=== PATIENT | male | born 1945 | race Caucasian/White ===

== ENCOUNTER 2016-06-20 17:50 | Emergency (ER) | payer OTHER, MEDICARE ==
[~2016-06-20] VITALS: Ht 180.3 cm; Wt 90.7 kg
[~2016-06-20 17:50] MED LIST: ASP81TEC PO; CITA40TA19 PO; DOXA1TAB2 PO; DXZS2T PO; FINA5TAB PO; FINA5TAB6 PO; IBUP-30 PO; LISI1TAB6 PO; LVF500T PO; MTR500T PO; NAPR220T76 PO; SIMV80TA3 PO; VENL75CA PO; ZOLP10TA5 PO
--- OUTSIDE RECORDS SUMMARY | 2016-06-20 17:57 | XMS REPORT | Continuity of Care Document ---
Author Author [facility] Organization [facility] Address Unknown Phone Unavailable Care Team Providers Care Coat Joiner Lockstitch Name Role Phone MARTINEZ SINHA DO PCP Insurance Providers Payer Name Policy Number Subscriber Name Relationship Wps Medicare [id number] Jean Paul Flores Jr 18 Self / Same As Patient Blue Cross [facility] Supp [id number] Yoly Flores A 01 Advance Directives Directive Response Recorded Date/Time Advance Directives No 11/10/14 6:00pm Health Care Power of Locks Tender Y yoly flores spouse [phone] 6:00pm Organ Donor No 11/10/14 6:00pm Resuscitation Status Full Code 11/10/14 6:00pm Problems Medical Problems Problem Onset Date Status Colitis Unknown Active Diarrhea Unknown Active Hematochezia Unknown Active Colitis Unknown Active Vertigo Unknown Active Nausea and vomiting Unknown Active Abdominal pain Unknown Active Medications Medication Dose Route Sig Days/Qty Instructions Order Date Discontinued Date Status Finasteride 5 Mg PO DAILY 09/11/12 01/27/14 Discontinued Citalopram Hydrobromide 40 Mg PO DAILY 09/11/12 01/27/14 Discontinued Simvastatin 80 Mg PO BEDTIME 09/11/12 11/10/14 Discontinued HCTZ/Lisinopril (Zestoretic) 1 Tab PO DAILY 09/11/12 Active Zolpidem Tartrate 10 Mg PO BEDTIME 09/11/12 Active Doxazosin Mesylate 0.5 Mg PO BEDTIME 09/11/12 01/27/14 Discontinued Aspirin 81 Mg PO DAILY 01/27/14 11/10/14 Discontinued Doxazosin Mesylate 1 Mg PO BEDTIME TAKES 1/2 (2MG) TABLET 01/27/14 Discontinued Ibuprofen 400 Mg PO DAILY PRN PAIN 01/27/14 11/10/14 Discontinued Naproxen Sodium 440 Mg PO DAILY PRN PAIN TAKES 2 (220MG) TABLETS 01/29/14 Discontinued Venlafaxine HCl 225 Mg PO BEDTIME For PTSD/DEPRESSION 01/27/14 Active Levofloxacin 500 Mg PO DAILY@11 6 Qty 01/29/14 11/10/14 Discontinued Metronidazole 500 Mg PO GIVE EVERY 8 HRS ON SCHEDULE 18 Qty 01/29/14 11/10/14 Discontinued Finasteride 5 Mg PO BEDTIME 11/10/14 Active Social History Social History Problem Response Recorded Date/Time Alcohol Use Occasionally Uses 11/10/2014 6:00pm Recreational Drug Use No 11/10/2014 6:00pm Recent Foreign Travel No 01/27/2014 4:00pm Recent Infectious Disease Exposure No 01/27/2014 4:00pm Hospitalization with Isolation Denies 01/29/2014 12:03pm Sexually Transmitted Disease No 11/10/2014 6:00pm HIV/AIDS No 11/10/2014 6:00pm Comments beer on wknds 11/10/2014 6:00pm Smoking Status Never a Smoker 11/10/2014 6:00pm Query Response Start Date Stop Date Smoking Status Never a Smoker Hospital Discharge Instructions No hospital discharge instructions. Plan of Care No plan of care. Functional Status No functional status results. Allergies, Adverse Reactions, Alerts Allergen Type Severity Reaction Status Last Updated NKANo Known Allergies Allergy Unknown Active 01/27/14 Immunizations Name Given Type Date of Pneumonia Vaccine 09/03/12 Historical Vital Signs Acute Vital Signs Vital Response Date/Time Temperature (Fahrenheit) 98.0 degrees F (97.6 - 99.5) Temperature (Calculated Celsius) 36.50850 degrees C (36.4 - 37.5) Temperature Source Temporal Pulse Rate (adult) 62 bpm (60 - 90) Respiratory Rate 20 bpm (12 - 24) O2 Sat by Pulse Oximetry 97 % (88 - 100) Blood Pressure 105/77 mm Hg Pain Pain Intensity 8 Height (Feet) 5 feet Height (Inches) 9 inches Height (Calculated Centimeters) 175.413619 cm Weight (Pounds) 235 pounds Weight (Calculated Grams) 947813.208 gm Weight (Calculated Kilograms) 106.989837 kilograms Calculated BMI 34.70 Results Laboratory Results Test Name Result Units Flags Reference Collection Date/Time Result Date/ Time Comments White Blood Count 12.1 10^3/uL H 4.3-11.0 11/10/2014 6:06pm 11/10/2014 7: 12pm Red Blood Count 4.81 10^6/uL 4.35-5.85 11/10/2014 6:06pm 11/10/2014 7: 12pm Hemoglobin 13.7 G/DL 13.3-17.7 11/10/2014 6:06pm 11/10/2014 7:12pm Hematocrit 42 % 40-54 11/10/2014 6:06pm 11/10/2014 7:12pm Mean Corpuscular Volume 88 FL 80-99 11/10/2014 6:06pm 11/10/2014 7: 12pm Mean Corpuscular Hemoglobin 29 PG 25-34 11/10/2014 6:06pm 11/10/2014 7: 12pm Mean Corpuscular Hemoglobin Concent 33 G/DL 32-36 11/10/2014 6:06pm 7:12pm Red Cell Distribution Width 13.5 % 10.0-14.5 11/10/2014 6:06pm 2014 7:12pm Platelet Count 227 10^3/uL 130-400 11/10/2014 6:06pm 11/10/2014 7:12pm Mean Platelet Volume 10.6 FL H 7.4-10.4 11/10/2014 6:06pm 11/10/2014 7: 12pm Neutrophils (%) (Auto) 59 % 42-75 11/10/2014 6:06pm 11/10/2014 7:12pm Lymphocytes (%) (Auto) 27 % 12-44 11/10/2014 6:06pm 11/10/2014 7:12pm Monocytes (%) (Auto) 12 % 0-12 11/10/2014 6:06pm 11/10/2014 7:12pm Eosinophils (%) (Auto) 2 % 0-10 11/10/2014 6:06pm 11/10/2014 7:12pm Basophils (%) (Auto) 1 % 0-10 11/10/2014 6:06pm 11/10/2014 7:12pm Neutrophils # (Auto) 7.1 X 10^3 1.8-7.8 11/10/2014 6:06pm 11/10/2014 7: 12pm Lymphocytes # (Auto) 3.2 X 10^3 1.0-4.0 11/10/2014 6:06pm 11/10/2014 7: 12pm Monocytes # (Auto) 1.4 X 10^3 H 0.0-1.0 11/10/2014 6:06pm 11/10/2014 7: 12pm Eosinophils # (Auto) 0.2 10^3/uL 0.0-0.3 11/10/2014 6:06pm 11/10/2014 7 :12pm Basophils # (Auto) 0.1 10^3/uL 0.0-0.1 11/10/2014 6:06pm 11/10/2014 7: 12pm Sodium Level 141 MMOL/L 135-145 11/10/2014 6:06pm 11/10/2014 7:21pm Potassium Level 3.3 MMOL/L L 3.6-5.0 11/10/2014 6:06pm 11/10/2014 7:21pm Chloride Level 110 MMOL/L H 98-107 11/10/2014 6:06pm 11/10/2014 7:21pm Carbon Dioxide Level 19 MMOL/L L 21-32 11/10/2014 6:06pm 11/10/2014 7: 21pm Blood Urea Nitrogen 15 MG/DL 7-18 11/10/2014 6:06pm 11/10/2014 7:21pm Creatinine 1.14 MG/DL 0.60-1.30 11/10/2014 6:06pm 11/10/2014 7:21pm BUN/Creatinine Ratio 13 11/10/2014 6:06pm 11/10/2014 7:21pm Estimat Glomerular Filtration Rate > 60 11/10/2014 6:06pm 2014 7:21pm GFR INTERPRETIVE DATA UNITS FOR ESTIMATED GFR (eGFR): mL/min/1.73 M2 REFERENCE RANGE FOR ESTIMATED GFR (eGFR) eGFR NORMAL eGFR >60 MODERATELY DECREASED eGFR 30-59 SEVERLY DECREASED eGFR 15-29 KIDNEY FAILURE <15 (OR DIALYSIS) Glucose Level 104 MG/DL 70-105 11/10/2014 6:06pm 11/10/2014 7:21pm Calcium Level 9.1 MG/DL 8.5-10.1 11/10/2014 6:06pm 11/10/2014 7:21pm Total Bilirubin 0.3 MG/DL 0.1-1.0 11/10/2014 6:06pm 11/10/2014 7:21pm Alkaline Phosphatase 76 U/L 40-136 11/10/2014 6:06pm 11/10/2014 7:21pm Aspartate Amino Transf (AST/SGOT) 26 U/L 5-34 11/10/2014 6:06pm 2014 7:21pm Alanine Aminotransferase (ALT/SGPT) 21 U/L 0-55 11/10/2014 6:06pm 11/10 7:21pm Total Protein 7.9 G/DL 6.4-8.2 11/10/2014 6:06pm 11/10/2014 7:21pm Albumin 4.1 G/DL 3.2-4.5 11/10/2014 6:06pm 11/10/2014 7:21pm Lipase 17 U/L 8-78 11/10/2014 6:06pm 11/10/2014 7:21pm Procedures No known history of procedures. Encounters Encounter Location Date/Time Departed Emergency Room Via [facility] 11/10/14 5:59pm Recent Diagnosis
[2016-06-20] MEDS ORDERED: fentaNYL INJECTION 100 MCG/2 ML AMP IVP ONE (18:30)
[2016-06-20] MEDS ORDERED: KETOROLAC 30 MG/ML VIAL IVP ONE (18:30)
[2016-06-20] MEDS ORDERED: HYDROmorphone (DILAUDID) 2 MG/ML VIAL IVP STA (18:40)
[2016-06-20] MEDS ORDERED: ORPHENADRINE 60 MG/2 ML (NORFLEX) AMP IV ONE (18:45)
--- NOTE | 2016-06-20 19:30 | Diagnostic Imaging Report ---
PROCEDURE: MRI lumbar spine. TECHNIQUE: Multiplanar, multisequence MRI of the lumbar spine was performed without contrast. INDICATION: Low back pain with right leg numbness. COMPARISON: None available. FINDINGS: There is no acute fracture or marrow replacing process in the lumbar spine. Degenerative anterolisthesis of L4 on L5 measures approximately 3 mm. No additional spondylolisthesis within the lumbar spine. No evidence of sacral insufficiency fracture. No findings of active facet synovitis. The conus terminates posterior to T12-L1 and is normal in appearance. T12-L1: Posterior disc bulge. No resultant spinal stenosis or neuroforaminal narrowing. L1-L2: Disc bulge is asymmetric to the left. Mild bilateral ligamentum flavum hypertrophy. This results in mild central spinal stenosis, mild right and mild to moderate left neuroforaminal narrowing. L2-L3: Disc bulge with mild bilateral facet hypertrophy. This results in mild central spinal stenosis. There is also mild bilateral foraminal narrowing. L3-L4: Large broad-based disc bulge with bilateral ligamentum flavum facet hypertrophy. This results in moderate to severe central spinal stenosis. There is complete effacement of the bilateral lateral recesses with marked mass effect on the transversing L4 nerve roots. There is also mild to moderate bilateral foraminal narrowing, greater on the left. L4-L5: Disc bulge with bilateral facet hypertrophy. There is resultant moderate to severe central spinal stenosis. Mild bilateral foraminal narrowing. L5-S1: Disc bulge is asymmetric to the right. There is no resultant spinal stenosis. However, there is contact of the right L5 nerve root by the disc bulge within the right foramen. IMPRESSION: 1. Multilevel degenerative changes had the greatest degree of spinal stenosis at L3-L4 and L4-L5 with moderate to severe spinal canal narrowing. 2. Asymmetric disc bulge to the right at L5-S1 contacts the right L5 nerve root within the foramen. 3. Multilevel degenerative changes are detailed level by level above. 4. No acute fracture. Dictated by: Dictated on workstation # [id number]
--- NOTE | 2016-06-20 19:52 | ED Back Pain ---
General Chief Complaint: Back Problems Stated Complaint: BACK PAIN Nursing Triage Note: Pt had to be assisted to the gurney from the floor in the waiting room. C/O low back pain with radiation down right leg. Reportedly injured himself by pulling on a dumpster chain. Nursing Sepsis Screen: No Definite Risk Source of Information: Patient Exam Limitations: No Limitations History of Present Illness Time Seen by Provider: 18:00 Initial Comments This 70-year-old gentleman presents to the emergency room with severe lower back pain with right-sided radicular symptoms of weakness, numbness, and paresthesia. Symptoms started about 2 months ago when he got compressed between 2 dumpsters. He had some significant injury at that time but managed to recover. Symptoms were severely exacerbated earlier today when he was pulling on a door with a chain. He has been ambulatory with great difficulty. He has been taking an average of one dose of NSAIDs per day over the last few months to manage his chronic pain. He denies any prior history of back problems or prior imaging. Allergies and Home Medications Allergies Coded Allergies: [place] Known Allergies (Verified Allergy, Unknown, 01/27/14) Home Medications Finasteride 5 Mg Tablet 5 MG PO HS (Reported) Hctz/Lisinopril 1 Each Tablet 1 TAB PO DAILY (Reported) Hydrocodone/Acetaminophen 1 Each Tablet #14 1-2 EACH PO Q6H PRN PRN PAIN Prescribed by: ANTOINETTE NICHOLSON on 06/20/162010 Metaxalone 800 Mg Tablet #20 800 MG PO TID PRN PRN SPASMS Prescribed by: ANTOINETTE NCIHOLSON on 06/20/162010 Prednisone 20 Mg Tab #9 20 MG PO UD 2 daily for 3 days then 1 daily for 3 days Prescribed by: ANTOINETTE NICHOLSON on 06/20/162010 Venlafaxine HCl 75 Mg Cap.er.24h 225 MG PO HS (Reported) TAKES 3 (75MG) CAPSULES Zolpidem Tartrate 10 Mg Tablet 10 MG PO HS (Reported) Constitutional: no symptoms reported EENTM: no symptoms reported Respiratory: no symptoms reported Cardiovascular: no symptoms reported Gastrointestinal: no symptoms reported Genitourinary: no symptoms reported Musculoskeletal: see HPI Skin: no symptoms reported Psychiatric/Neurological: See HPI Past Ghypzlo-Kasqsx-Puioya Hx Patient Social History Recent Foreign Travel: No Contact w/Someone Who Travel: No Recent Infectious Disease Expo: No Recent Hopitalizations: Yes Immunizations Up To Date Date of Pneumonia Vaccine: Sep 03, 2012 Surgeries HX Surgeries: Yes ( titanum plate in neck placed 2001, bilat rotator cuffs & carpal tunnels,) Surgeries: Appendectomy, Gallbladder, Orthopedic Respiratory Hx Respiratory Disorders: No Cardiovascular Hx Cardiac Disorders: Yes (HEART CATH) Cardiac Disorders: High Cholesterol, Hypertension Neurological Hx Neurological Disorders: No Reproductive System Hx Reproductive Disorders: No Sexually Transmitted Disease: No HIV/AIDS: No Genitourinary Hx Genitourinary Disorders: No Gastrointestinal Hx Gastrointestinal Disorders: Yes (colon "collapses") Gastrointestinal Disorders: Hemorrhoids Musculoskeletal Hx Musculoskeletal Disorders: No Endocrine Hx Endocrine Disorders: No HEENT HX ENT Disorders: No Loss of Vision: Denies Hearing Impairment: Denies Cancer Hx Cancer: No Psychosocial Hx Psychiatric Problems: Yes Behavioral Health Disorders: PTSD, Depression Integumentary HX Skin/Integumentary Disorder: Yes (had some places froze off on arm (sun exposure)) Skin/Integumentary Disorders: Recent Skin Changes Blood Transfusions Hx Blood Disorders: No Adverse Reaction to a Blood Tr: No Family Medical History Family Medial History: Cardiovascular disease Colon cancer Completed stroke Hypertension Neoplasm Physical Exam Vital Signs Vital Sign - Last 12Hours 06/20/16 17:55 Temp 97.6 Pulse 88 Resp 18 B/P 123/53 Pulse Ox 98 O2 Delivery Room Air Capillary Refill : Less Than 3 Seconds General Appearance: WD/WN Moderate Distress HEENT: PERRL/EOMI Normal ENT Inspection Pharynx Normal Neck: Normal Inspection Cardiovascular: Regular Rate, Rhythm No Edema No Murmur Respiratory: Lungs Clear Normal Breath Sounds No Accessory Muscle Use No Respiratory Distress Gastrointestinal: Normal Bowel Sounds Non Tender Soft Back: Vertebral Tenderness (lower lumbar spine) Other (right lumbar paraspinous tenderness and tenderness over the right SI region) Extremity: Normal Inspection No Pedal Edema Neurologic/Psychiatric: Alert Oriented x3 No Motor/Sensory Deficits Normal 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-XII Norm as Tested Skin: Normal Color Warm/Dry Progress/Results/Core Measures Results/Orders My Orders Orders-ANTOINETTE DE LA TORRE MD Ketorolac Injection (Toradol Injection) (06/20/16 18:30) Fentanyl Injection (Sublimaze Injection (06/20/16 18:30) Mri Lumbar Spine W/O Contrast (06/20/16 18:29) Orphenadrine Injection (Norflex Injectio (06/20/16 18:45) Hydromorphone Injection (Dilaudid Inject (06/20/16 18:40) Methylprednisolone Sod Succ (Solu-Medrol (06/20/16 20:00) Medications Given in ED Vital Signs/I&O Vital Sign - Last 12Hours 06/20/16 06/20/16 06/20/16 06/20/16 17:55 18:38 18:38 18:49 Temp 97.6 98.1 98.6 98.1 Pulse 88 Resp 18 B/P 123/53 Pulse Ox 98 O2 Delivery Room Air 06/20/16 20:19 Temp 97.2 Pulse 86 Resp 16 Pulse Ox 93 Blood Pressure Mean: 76 Progress Note : Progress Note Patient required successive doses of pain medications to get control of his pain. Medications included fentanyl, Toradol, Norflex, and Dilaudid. He was eventually comfortable enough to pursue MRI. MRI demonstrated multilevel severe spinal stenosis. Solu-Medrol was added to his therapy. Case was reviewed with Dr. Self who suggested outpatient treatment with Skelaxin, steroids, NSAIDs, and physical therapy daily. He suggested avoiding narcotics as much as possible. He also suggested surgery is not likely a good option for this patient given the extensive multilevel disease. Patient was able to ambulate independently after treatment of pain. A prescription was written for a walker if needed. I also contacted Dr. Sinha in an effort to expedite arrangements for physical therapy. Patient intends to file a claim with occupational health. However, he was not seen by occupational health in the ER as his employer does not contract through this facility. Diagnostic Imaging Diagonstic Imaging: MRI Plain Films/CT/US/NM/MRI: other (lumbar spine) Comments NAME: JEAN PAUL [facility] REC#: [id number] PT STATUS: REG ER : 1945 PHYSICIAN: ANTOINETTE DE LA TORRE MD ADMIT DATE: 06/20/16/ER Signed Date of Exam: 06/20/16 MRI LUMBAR SPINE W/O CONTRAST PROCEDURE: MRI lumbar spine. TECHNIQUE: Multiplanar, multisequence MRI of the lumbar spine was performed without contrast. INDICATION: Low back pain with right leg numbness. COMPARISON: None available. FINDINGS: There is no acute fracture or marrow replacing process in the lumbar spine. Degenerative anterolisthesis of L4 on L5 measures approximately 3 mm. No additional spondylolisthesis within the lumbar spine. No evidence of sacral insufficiency fracture. No findings of active facet synovitis. The conus terminates posterior to T12-L1 and is normal in appearance. T12-L1: Posterior disc bulge. No resultant spinal stenosis or neuroforaminal narrowing. L1-L2: Disc bulge is asymmetric to the left. Mild bilateral ligamentum flavum hypertrophy. This results in mild central spinal stenosis, mild right and mild to moderate left neuroforaminal narrowing. L2-L3: Disc bulge with mild bilateral facet hypertrophy. This results in mild central spinal stenosis. There is also mild bilateral foraminal narrowing. L3-L4: Large broad-based disc bulge with bilateral ligamentum flavum facet hypertrophy. This results in moderate to severe central spinal stenosis. There is complete effacement of the bilateral lateral recesses with marked mass effect on the transversing L4 nerve roots. There is also mild to moderate bilateral foraminal narrowing, greater on the left. L4-L5: Disc bulge with bilateral facet hypertrophy. There is resultant moderate to severe central spinal stenosis. Mild bilateral foraminal narrowing. L5-S1: Disc bulge is asymmetric to the right. There is no resultant spinal stenosis. However, there is contact of the right L5 nerve root by the disc bulge within the right foramen. IMPRESSION: 1. Multilevel degenerative changes had the greatest degree of spinal stenosis at L3-L4 and L4-L5 with moderate to severe spinal canal narrowing. 2. Asymmetric disc bulge to the right at L5-S1 contacts the right L5 nerve root within the foramen. 3. Multilevel degenerative changes are detailed level by level above. 4. No acute fracture. Dictated by: Dictated on workstation # [id number] Dict: 06/20/16 191 Trans: 06/20/162012 MARIA VICTORIA [id number] Interpreted by: KURT PIERRE MD Electronically signed by:KURT PIERRE MD 06/20/162014 Departure Impression Impression: Primary Impression: Spinal stenosis of lumbosacral region Additional Impression: Lower back pain Qualified Code: M54.41 - Lumbago with sciatica, right side Disposition: 01 HOME, SELF-CARE Condition: Improved Departure-Patient Inst. Decision time for Depature: 20:00 Referrals: MARTINEZ SINHA DO (PCP/Family) Primary Care Physician LASHELL BURKETT BRIAN J MD Patient Instructions: Spinal Stenosis, Radiculopathy (DC) Add. Discharge Instructions: For primary pain management, take ibuprofen up to 800 mg every 8 hours as needed. Take with food or milk to avoid irritation on your stomach. Add Tylenol 650 mg every 4 hours as needed for additional pain relief. For muscle spasms use Skelaxin as prescribed. [place] narcotics (hydrocodone) for pain that is not relieved by your other medications. Complete your steroid (prednisone) course as prescribed. You'll need to file a work comp claim independently as your employer is not contracted through the ER. If you cannot get immediate physical therapy started through your work comp claim, please contact Dr. Sinha's office to schedule physical therapy. You're being provided with a prescription for a walker if needed. Return to the emergency room if symptoms worsen. You may follow up with a clutch specialist. Information for Dr. Burkett and Dr. Henriquez has been provided. All discharge instructions reviewed with patient and/or family. Voiced understanding. Scripts Prednisone 20 Mg Tab20 Mg PO UD #9 TAB 2 daily for 3 days then 1 daily for 3 days Prov:ANTOINETTE DE LA TORRE MD 06/20/16 Metaxalone (Skelaxin)800 Mg [id number] Mg PO TID PRN SPASMS #20 TAB Prov:ANTOINETTE DE LA TORRE MD 06/20/16 Hydrocodone/Acetaminophen (Hydrocodon -Acetaminophen 5-325)1 Each Tablet1-2 Each PO Q6H PRN PAIN #14 TAB Prov:ANTOINETTE DE LA TORRE MD 06/20/16 Work/School Note: Work Release Form Date Seen in the Emergency Department: Jun 20, 2016 Other Restrictions Listed Below: Return to work when cleared by physician or occupational health Copy Copies To 1: MARTINEZ SINHA JOSHUA T MD Jun 20, 2016 19:51
[2016-06-20] MEDS ORDERED: methylPREDNISolone 125 MG (Solu-MEDROL) VIAL IVP ONE (20:00)
[2016-06-20] MEDS ORDERED: PRD20T PO (20:11)
[2016-06-20] MEDS ORDERED: HYDR-3812 PO (20:11)
[2016-06-20] MEDS ORDERED: NF-SKEL800 PO (20:11)
[2016-06-20 20:19] VITALS: BP 123/73
== END 2016-06-20 20:18 | disposition home or self-care (01) ==
LOC: EDUNIT# 17:50 → ER 17:53
DX: M51.15 Intervertebral disc disorders with radiculopathy, thoracolumbar region (principal); M47.27 Other spondylosis with radiculopathy, lumbosacral region; M48.06 Spinal stenosis, lumbar region; I10 Essential (primary) hypertension; Z79.899 Other long term (current) drug therapy
CPT/HCPCS: 72148; 96374; 96375

== ENCOUNTER 2016-06-27 12:27 | Inpatient (IN) | payer OTHER, MEDICARE ==
[~2016-06-27] VITALS: Ht 177.8 cm; Wt 109.5 kg
[~2016-06-27 12:27] MED LIST changes: +HYDR-3812 PO; +NF-SKEL800 PO; +PRD20T PO
--- OUTSIDE RECORDS SUMMARY | 2016-06-27 12:34 | XMS REPORT | Continuity of Care Document ---
Author Author [facility] Organization [facility] Address Unknown Phone Unavailable Care Team Providers Care Used Car Renovator Name Role Phone MARTINEZ SINHA DO PCP Insurance Providers Payer Name Policy Number Subscriber Name Relationship Wps Medicare [id number] Jean Paul Flores Jr 18 Self / Same As Patient Blue Cross [facility] Supp [id number] Yoly Flores A 01 Advance Directives Directive Response Recorded Date/Time Advance Directives No 11/10/14 6:00pm Health Care Power of Correction Worker Y yoly flores spouse [phone] 6:00pm Organ Donor No 11/10/14 6:00pm Resuscitation [...] F (97.6 - 99.5) Temperature (Calculated Celsius) 36.72906 degrees C (36.4 - 37.5) Temperature Source Temporal Pulse Rate (adult) 62 bpm (60 - 90) Respiratory Rate 20 bpm (12 - 24) O2 Sat by Pulse Oximetry 97 % (88 - 100) Blood Pressure 105/77 mm Hg Pain Pain Intensity 8 Height (Feet) 5 feet Height (Inches) 9 inches Height (Calculated Centimeters) 175.646704 cm Weight (Pounds) 235 pounds Weight (Calculated Grams) 189000.208 gm Weight (Calculated Kilograms) 106.767122 kilograms Calculated BMI 34.70 Results Laboratory Results [...] Encounter Location Date/Time Departed Emergency Room Via [facility] 11/10/14 5:59pm Recent Diagnosis
--- NOTE | 2016-06-27 12:38 | ED Neurological Problem ---
General Stated Complaint: CONFUSION,AGITATION Source: EMS Exam Limitations: no limitations History of Present Illness Time seen by provider: 12:35 Initial Comments To ER from home per EMS. Patient reported to his that he had a headache this morning before she went to work. She suggested he take a pain pill but doesn't believe that he did. Daughter then reports that the patient went to Dr. Te lopez in [place] to make an appointment as he was feeling generally ill but they could not get him in until 1 p.m. today. He then went home to wait and tripped over the dog as he entered the house. Daughter states that he then slid out of the chair. The was then called and Upon arrival he was agitated and confused. EMS found him to be very confused as well and gave 500 mg of ketamine IM en route to the hospital. Upon arrival to ER he is in a dissociated state with eyes open but does not follow commands. Unclear whether or not he hit his head when he fell but there is no hematoma to the face /head. Timing/Duration: 4-6 hours Severity: moderate Associated Symptoms: No nausea/vomiting Allergies and Home Medications Allergies Coded Allergies: NKANo Known Allergies (Verified Allergy, Unknown, 01/27/14) Home Medications Finasteride 5 Mg Tablet 5 MG PO HS (Reported) Hctz/Lisinopril 1 Each Tablet 1 TAB PO DAILY (Reported) Hydrocodone/Acetaminophen 1 Each Tablet #14 1-2 EACH PO Q6H PRN PRN PAIN Prescribed by: ANTOINETTE NICHOLSON on 06/20/162010 Metaxalone 800 Mg Tablet #20 800 MG PO TID PRN PRN SPASMS Prescribed by: ANTOINETTE NICHOLSON on 06/20/162010 Venlafaxine HCl 75 Mg Cap.er.24h 225 MG PO HS (Reported) TAKES 3 (75MG) CAPSULES Zolpidem Tartrate 10 Mg Tablet 10 MG PO HS (Reported) Constitutional: see HPI Eyes: No Symptoms Reported Ears, Nose, Mouth, Throat: no symptoms reported Respiratory: no symptoms reported Cardiovascular: no symptoms reported Genitourinary: no symptoms reported Musculoskeletal: no symptoms reported Skin: no symptoms reported Psychiatric/Neurological: See HPI Endocrine: No Symptoms Reported Past Ffbsvse-Jdjpjp-Kogbqu Hx Patient Social History Recent Hopitalizations: Yes Immunizations Up To Date Date of Pneumonia Vaccine: Sep 03, 2012 Surgeries HX Surgeries: Yes ( titanum plate in neck placed 2001, bilat rotator cuffs & carpal tunnels,) Surgeries: Appendectomy, Gallbladder, Orthopedic Respiratory Hx Respiratory Disorders: No Cardiovascular Hx Cardiac Disorders: Yes (HEART CATH) Cardiac Disorders: High Cholesterol, Hypertension Neurological Hx Neurological Disorders: No Reproductive System Hx Reproductive Disorders: No Sexually Transmitted Disease: No HIV/AIDS: No Genitourinary Hx Genitourinary Disorders: No Gastrointestinal Hx Gastrointestinal Disorders: Yes (colon "collapses") Gastrointestinal Disorders: Hemorrhoids Musculoskeletal Hx Musculoskeletal Disorders: No Endocrine Hx Endocrine Disorders: No HEENT HX ENT Disorders: No Loss of Vision: Denies Hearing Impairment: Denies Cancer Hx Cancer: No Psychosocial Hx Psychiatric Problems: Yes Behavioral Health Disorders: PTSD, Depression Integumentary HX Skin/Integumentary Disorder: Yes (had some places froze off on arm (sun exposure)) Skin/Integumentary Disorders: Recent Skin Changes Blood Transfusions Hx Blood Disorders: No Adverse Reaction to a Blood Tr: No Family Medical History Family Medial History: Cardiovascular disease Colon cancer Completed stroke Hypertension Neoplasm Physical Exam Vital Signs Vital Sign - Last 12Hours 06/27/16 13:42 Temp 98.1 Pulse 87 Resp 18 B/P 109/91 Pulse Ox 93 O2 Delivery Room Air Capillary Refill : General Appearance: WD/WN no apparent distress other (eyes open, pupils equal round at 3 mm, does not respond to commands.) HEENT: PERRL/EOMI normal ENT inspection Neck: non-tender full range of motion Respiratory: normal breath sounds no respiratory distress no accessory muscle use Cardiovascular: regular rate, rhythm no murmur Gastrointestinal: normal bowel sounds non tender soft Neurologic/Psychiatric: alert Crainal Nerves: normal hearing normal speech Skin: normal color warm/dry Progress/Results/Core Measures Results/Orders Lab Results Laboratory Tests Test 06/27/16 13:18 Range/Units Alanine Aminotransferase (ALT/SGPT) 36 0-55 U/L Albumin 3.7 3.2-4.5 G/DL Alkaline Phosphatase 56 40-136 U/L Anion Gap 8 5-14 MMOL/L Aspartate Amino Transf (AST/SGOT) 21 5-34 U/L BUN/Creatinine Ratio 16 Basophils # (Auto) 0.1 0.0-0.1 10^3/uL Basophils (%) (Auto) 0 0-10 % Blood Urea Nitrogen 14 7-18 MG/DL Calcium Level 8.4 L 8.5-10.1 MG/DL Carbon Dioxide Level 23 21-32 MMOL/L Chloride Level 106 98-107 MMOL/L Creatinine 0.90 0.60-1.30 MG/DL Eosinophils # (Auto) 0.1 0.0-0.3 10^3/uL Eosinophils (%) (Auto) 1 0-10 % Estimat Glomerular Filtration Rate > 60 Glucose Level 142 H 70-105 MG/DL Hematocrit 41 40-54 % Hemoglobin 13.3 13.3-17.7 G/DL INR Comment 1.1 0.8-1.4 Lymphocytes # (Auto) 2.6 1.0-4.0 X 10^3 Lymphocytes (%) (Auto) 22 12-44 % Mean Corpuscular Hemoglobin 29 25-34 PG Mean Corpuscular Hemoglobin Concent 33 32-36 G/DL Mean Corpuscular Volume 87 80-99 FL Mean Platelet Volume 9.6 7.4-10.4 FL Monocytes # (Auto) 1.1 H 0.0-1.0 X 10^3 Monocytes (%) (Auto) 10 0-12 % Neutrophils # (Auto) 8.1 H 1.8-7.8 X 10^3 Neutrophils (%) (Auto) 68 42-75 % Platelet Count 324 130-400 10^3/uL Potassium Level 3.6 3.6-5.0 MMOL/L Prothrombin Time 13.7 12.2-14.7 SEC Red Blood Count 4.66 4.35-5.85 10^6/uL Red Cell Distribution Width 13.3 10.0-14.5 % Sodium Level 137 135-145 MMOL/L Total Bilirubin 0.2 0.1-1.0 MG/DL Total Protein 6.9 6.4-8.2 G/DL White Blood Count 11.9 H 4.3-11.0 10^3/uL My Orders Orders-GARETH BRINK SKIP OPERATOR Cbc With Automated Diff (06/27/16 12:31) Comprehensive Metabolic Panel (06/27/16 12:31) Ct Head/Cervical Spine Wo (06/27/16 12:31) Protime With Inr (06/27/16 12:31) Ua Culture If Indicated (06/27/16 12:31) Chest 1 View, Ap/Pa Only (06/27/16 12:34) Pelvis (06/27/16 12:34) Midazolam Injection (Versed Injection) (06/27/16 13:00) Ondansetron Injection (Zofran Injectio (06/27/16 13:15) Ns Iv 500 Ml (Sodium Chloride 0.9%) (06/27/16 13:15) Haloperidol Injection (Haldol Injectio (06/27/16 13:45) Medications Given in ED Current Medications Medications Dose Ordered Sig/Chika Route Start Time Stop Time Status Last Admin Dose Admin Haloperidol Lactate 5 mg ONCE ONCE IM 06/27/16 13:45 06/27/16 13:46 DC 06/27/16 13:40 5 MG Midazolam HCl 1-3mg ONCE ONCE IVP 06/27/16 13:00 06/27/16 13:01 DC 06/27/16 13:31 1 MG Ondansetron HCl 4 mg ONCE ONCE IVP 06/27/16 13:15 06/27/16 13:16 DC 06/27/16 13:08 4 MG Vital Signs/I&O Vital Sign - Last 12Hours 06/27/16 13:42 Temp 98.1 Pulse 87 Resp 18 B/P 109/91 Pulse Ox 93 O2 Delivery Room Air Progress Note : Progress Note Of note, patient was started on prednisone on 06/21/16 for acute low back pain. 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 Diagnostic Imaging Diagonstic Imaging: CT Comments NAME: JEAN PAUL [facility] REC#: [id number] PT STATUS: REG ER : 1945 PHYSICIAN: GARETH BRINK APRN ADMIT DATE: 06/27/16/ER Draft Date of Exam:06/27/16 CT HEAD/CERVICAL SPINE WO PROCEDURE: CT head and CT cervical spine without contrast. TECHNIQUE: Multiple contiguous axial images were obtained through the brain and cervical spine without the use of intravenous contrast. Sagittal and coronal reformations through the cervical spine were then performed. INDICATION: Headache, confusion, and agitation. CT HEAD: Multiple contiguous axial CT images of the head were obtained. FINDINGS: Ventricles and sulci are within normal limits for size. There is no intracranial hemorrhage identified. There is no abnormal mass effect or shift of midline structures. There is mural thickening present within the left frontal sinus, multiple bilateral ethmoid air cells, and both maxillary sinuses. Calvarium is intact. IMPRESSION: Paranasal sinus mural thickening may represent chronic sinusitis. There is no CT evidence of acute sinusitis or acute intracranial abnormality. CT CERVICAL SPINE: FINDINGS: There is straightening of the normal cervical lordosis with surgical discectomy and anterior fusion at the C5-6 level. Otherwise, there is diffuse disc space narrowing and prominent marginal spurring throughout the cervical spine. Endplate spurring at C3-4 likely results in at least mild bilateral neural foraminal stenosis. There is no evidence of acute fracture or malalignment. No paraspinous hematoma is detected. IMPRESSION: Diffuse cervical spondylosis with C5-6 surgical fusion. There is no CT evidence of acute cervical spinal abnormality. Dictated on workstation # [id number] Dict: 06/27/16 1253 Trans: 06/27/16 1258 [id number] Interpreted by: YOMI PERSON MD Electronically signed by: Departure Communication Time/Spoke to Admitting Phy: 14:[address] Barrera. We will admit the patient. Hold steroids, treat with IM Haldol Progress Notes 1303-resting in bed quietly with eyes closed. Blood pressure 116/73, heart rate 72 sinus, oxygen saturation 93 percent on room air. He does open his eyes to verbal stimulation but does not respond 1329-patient is now screaming in his room nonsensical phrases moving all extremities. Versed ordered. 1333-absolutely no improvement with the Versed. He continues to scream and Wail and move all extremities. Second milligram of versed ordered and 5 mg of intramuscular Haldol. 1405-patient is now resting quietly in bed, heart rate 75, oxygen saturation 92 percent on room air, blood pressure 92/67. Impression Impression: Primary Impression: Acute psychosis Disposition: ADMITTED INPATIENT Condition: Stable Departure-Patient Inst. Referrals: MARTINEZ SINHA DO (PCP/Family) Primary Care Physician GARETH BRINK APRN Jun 27, 2016 12:38
--- NOTE | 2016-06-27 12:58 | Diagnostic Imaging Report ---
PROCEDURE: CT head and CT cervical spine without contrast. TECHNIQUE: Multiple contiguous axial images were obtained through the brain and cervical spine without the use of intravenous contrast. Sagittal and coronal reformations through the cervical spine were then performed. INDICATION: Headache, confusion, and agitation. CT HEAD: Multiple contiguous axial CT images of the head were obtained. FINDINGS: Ventricles and sulci are within normal limits for size. There is no intracranial hemorrhage identified. There is no abnormal mass effect or shift of midline structures. There is mural thickening present within the left frontal sinus, multiple bilateral ethmoid air cells, and both maxillary sinuses. Calvarium is intact. IMPRESSION: Paranasal sinus mural thickening may represent chronic sinusitis. There is no CT evidence of acute sinusitis or acute intracranial abnormality. CT CERVICAL SPINE: FINDINGS: There is straightening of the normal cervical lordosis with surgical discectomy and anterior fusion at the C5-6 level. Otherwise, there is diffuse disc space narrowing and prominent marginal spurring throughout the cervical spine. Endplate spurring at C3-4 likely results in at least mild bilateral neural foraminal stenosis. There is no evidence of acute fracture or malalignment. No paraspinous hematoma is detected. IMPRESSION: Diffuse cervical spondylosis with C5-6 surgical fusion. There is no CT evidence of acute cervical spinal abnormality. Dictated by: Dictated on workstation # [id number]
[2016-06-27] MEDS ORDERED: MIDAZOLAM 5 MG/5 ML (VERSED) VIAL IVP ONE (13:00)
--- NOTE | 2016-06-27 13:04 | Diagnostic Imaging Report ---
INDICATION: Injury from a fall. Pelvis. AP view of the pelvis shows no fracture or dislocation. IMPRESSION: Negative pelvis. Dictated by: Dictated on workstation # [id number]
--- NOTE | 2016-06-27 13:06 | Diagnostic Imaging Report ---
INDICATION: Chest pain. Portable chest at 01:07 p.m. FINDINGS: Heart size and pulmonary vascularity are normal. Lungs are clear. There are no effusions or pneumothoraces. IMPRESSION: Negative chest. Dictated by: Dictated on workstation # [id number]
[2016-06-27] MEDS ORDERED: ONDANSETRON 4 MG/2 ML (SDV) Z0FRAN IVP ONE (13:15)
[2016-06-27] MEDS ORDERED: NS IV 500 ML 500 ML IV SCH (13:15)
[2016-06-27 13:29] LABS: BASOPHILS # (AUTO) 0.1 10^3/uL (0.0-0.1); BASOPHILS % (AUTO) 0 % (0-10); EOSINOPHILS # (AUTO) 0.1 10^3/uL (0.0-0.3); EOSINOPHILS % (AUTO) 1 % (0-10); LYMPHOCYTES # (AUTO) 2.6 X 10^3 (1.0-4.0); LYMPHOCYTES % (AUTO) 22 % (12-44); MEAN CORPUSCULAR HEMOGLOBIN 29 PG (25-34); MEAN CORPUSCULAR HGB CONC 33 G/DL (32-36); MEAN CORPUSCULAR VOLUME 87 FL (80-99); MEAN PLATELET VOLUME 9.6 FL (7.4-10.4); MONOCYTES # (AUTO) 1.1 X 10^3 (0.0-1.0); MONOCYTES % (AUTO) 10 % (0-12); NEUTROPHILS # (AUTO) 8.1 X 10^3 (1.8-7.8); NEUTROPHILS % (AUTO) 68 % (42-75); PLATELET COUNT 324 10^3/uL (130-400); RED BLOOD COUNT 4.66 10^6/uL (4.35-5.85); RED CELL DISTRIBUTION WIDTH 13.3 % (10.0-14.5); WHITE BLOOD COUNT 11.9 10^3/uL (4.3-11.0)
[2016-06-27 13:45] LABS: INR 1.1 (0.8-1.4); PROTHROMBIN TIME PATIENT 13.7 SEC (12.2-14.7)
[2016-06-27] MEDS ORDERED: HALOPERIDOL 5 MG/ML (HALDOL) AMP IM ONE (13:45)
[2016-06-27 13:49] LABS: ALANINE AMINOTRANSFERASE 36 U/L (0-55); ALBUMIN 3.7 G/DL (3.2-4.5); ANION GAP 8 MMOL/L (5-14); ASPARTATE AMINO TRANSFERASE 21 U/L (5-34); BILIRUBIN,TOTAL 0.2 MG/DL (0.1-1.0); BLOOD UREA NITROGEN 14 MG/DL (7-18); BUN/CREATININE RATIO 16; CALCIUM 8.4 MG/DL (8.5-10.1); CARBON DIOXIDE 23 MMOL/L (21-32); CHLORIDE 106 MMOL/L (98-107); GFR ESTIMATED > 60; GLUCOSE 142 MG/DL (70-105); POTASSIUM 3.6 MMOL/L (3.6-5.0); SODIUM 137 MMOL/L (135-145); TOTAL PROTEIN 6.9 G/DL (6.4-8.2)
[2016-06-27] MEDS ORDERED: HALOPERIDOL 5 MG/ML (HALDOL) AMP IM PRN (14:45)
[2016-06-27 15:35] VITALS: BP 150/78
[2016-06-27] MEDS ORDERED: HYDR-3812 PO (15:41)
[2016-06-27] MEDS ORDERED: META800T PO (15:41)
[2016-06-27] MEDS ORDERED: DOXA2TAB2 PO (15:50)
[2016-06-27] MEDS ORDERED: SIMV80TA3 PO (15:50)
[2016-06-27] MEDS ORDERED: MELA1TAB10 PO (15:50)
[2016-06-27] MEDS ORDERED: ACETAMINOPHEN 500 MG TAB (TYLENOL) PO PRN (18:00)
[2016-06-27] MEDS ORDERED: CATHETER FLUSH 10 ML SYR IV PRN (18:00)
[2016-06-27] MEDS: ONDANSETRON 4 MG/2 ML (SDV) Z0FRAN IVP PRN ×2 (18:04→22:21)
[2016-06-27 19:08] LABS: BILIRUBIN,URINE NEGATIVE (NEGATIVE); KETONES,URINE NEGATIVE (NEGATIVE); LEUKOCYTE ESTERASE ,URINE NEGATIVE (NEGATIVE); NITRITE,URINE NEGATIVE (NEGATIVE); PH,URINE 7 (5-9); PROTEIN,URINE NEGATIVE (NEGATIVE); UROBILINOGEN,URINE NORMAL (NORMAL)
[2016-06-27 19:38] LABS: WBC,URINE RARE /HPF
[2016-06-27 20:10] VITALS: BP 182/82
[2016-06-27] MEDS ORDERED: ZOLPIDEM 5 MG (AMBIEN) TAB ONE (22:03)
[2016-06-27] MEDS ORDERED: VENlafaxine XR 75 MG (EFFEXOR XR) CAP PO ONE (22:06)
[2016-06-27] MEDS: ZOLPIDEM 5 MG (AMBIEN) TAB PO SCH (22:10)
[2016-06-27] MEDS: CATHETER FLUSH 10 ML SYR IV SCH (22:11)
[2016-06-28 00:05] VITALS: BP 130/76
[2016-06-28] MEDS ORDERED: ZOLPIDEM 5 MG (AMBIEN) TAB ONE (01:07)
[2016-06-28] MEDS: ZOLPIDEM 5 MG (AMBIEN) TAB PO SCH (01:16)
[2016-06-28 04:00] VITALS: BP 115/65
[2016-06-28] MEDS: CATHETER FLUSH 10 ML SYR IV SCH (06:00)
[2016-06-28 08:00] VITALS: BP 151/78
--- NOTE | 2016-06-28 10:53 | Short Stay Summary-Hospitalist ---
HPI History of Present Illness: HPI/Chief Complaint CC: Severe Confusion HPI: This is a 70[address] pt [place] [address] [facility] [place] with severe delirium and psychosis. He was recently placed on Prednisone for ruptured discs in back and the theory is that this could have started this issue. 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 Pt has been ambulating and is very clear of mind. RN states that pt is stable for DC. Pt has been eating without compilations. Patient Interview: Pt states that he feels very good today and is ready for DC. Pt states that he has only seen Dr. Tiwari once before. Pt normally goes to [facility]. Pt has two ruptured discs in back, and was placed on Prednisone. Pt does not smoke or drink ETOH. Pt was on Prednisone starting last Monday and began to feel ill Monday. Pt felt strange and had HAs while taking Prednisone. Physical exam stable. Scribed by Daniel Owusu under the direct supervision of Dr. Barrera. Source: patient Exam Limitations: no limitations Date Seen 06/28/16 Attending Physician Penny Barrera DO PCP Aleisha Tiwari MD Referring Physician Date of Admission Jun 27, 2016 at 14:04 Home Medications & Allergies Home Medications Reviewed patient Home Medication Reconciliation Form Allergies Uncoded Allergies: PREDINSONE (Adverse Reaction, Severe, 06/28/16) PREDNISONE INDUCED PSYCHOSIS Past Zqhwydc-Ikvbhl-Rdlzgt Hx Patient Social History Marrital Status: Employed/Student: retired Alcohol Use: Occasionally Uses Recreational Drug Use: No Smoking Status: Never a Smoker Physical Abuse Screen: No Sexual Abuse: No Recent Foreign Travel: No Contact w/other who traveled: No Recent Hopitalizations: Yes Recent Infectious Disease Expo: No Immunizations Up To Date Date of Pneumonia Vaccine: Sep 03, 2012 Date of Influenza Vaccine: Jan 25, 2017 Surgeries HX Surgeries: Yes ( titanum plate in neck placed 2001, bilat rotator cuffs & carpal tunnels,) Surgeries: Appendectomy, Gallbladder, Orthopedic Respiratory Hx Respiratory Disorders: No Cardiovascular Hx Cardiovascular Disorders: Yes (HEART CATH) Cardiac Disorders: High Cholesterol, Hypertension Neurological Hx Neurological Disorders: No Reproductive System Hx Reproductive Disorders: No Sexually Transmitted Disease: No HIV/AIDS: No Genitourinary Hx Genitourinary Disorders: No Gastrointestinal Hx Gastrointestinal Disorders: Yes (colon "collapses") Gastrointestinal Disorders: Hemorrhoids Musculoskeletal Hx Musculoskeletal Disorders: Yes Musculoskeletal Disorders: Degenerate Disk Disease Endocrine Hx Endocrine Disorders: No HEENT HX ENT Disorders: No Loss of Vision: Denies Hearing Impairment: Denies Cancer Hx Cancer: No Psychosocial Hx Psychiatric Problems: Yes Behavioral Health Disorders: PTSD, Depression Integumentary HX Skin/Integumentary Disorder: Yes (had some places froze off on arm (sun exposure)) Skin/Integumentary Disorders: Recent Skin Changes Blood Transfusions Hx Blood Disorders: No Adverse Reaction to a Blood Tr: No Family Medical History Family Hx: Cardiovascular disease Colon cancer Completed stroke Hypertension Neoplasm Review of Systems Constitutional: see HPI malaise weakness EENTM: no symptoms reported Respiratory: no symptoms reported Cardiovascular: no symptoms reported Gastrointestinal: no symptoms reported Genitourinary: no symptoms reported Musculoskeletal: back pain Skin: no symptoms reported Psychiatric/Neurological: Other (amnesia of psychotic event) Physical Exam Physical Exam Vital Signs Vital Sign - Last 12Hours 06/27/16 13:42 Temp 98.1 Pulse 87 Resp 18 B/P 109/91 Pulse Ox 93 O2 Delivery Room Air Capillary Refill : NONELess Than 3 Seconds General Appearance: No Apparent Distress WD/WN Eyes: Bilateral Eye Normal Inspection, Bilateral Eye PERRL HEENT: PERRL/EOMI Normal ENT Inspection Pharynx Normal Neck: Full Range of Motion Normal Inspection Non Tender Supple Carotid Bruit Respiratory: Chest Non Tender Lungs Clear Normal Breath Sounds No Accessory Muscle Use No Respiratory Distress Cardiovascular: Regular Rate, Rhythm No Edema No Gallop No JVD No Murmur Normal Peripheral Pulses Gastrointestinal: Normal Bowel Sounds No Organomegaly No Pulsatile Mass Non Tender Soft Back: Normal Inspection No CVA Tenderness No Vertebral Tenderness Extremity: Normal Capillary Refill Normal Inspection Normal Range of Motion Non Tender No Calf Tenderness No Pedal Edema Neurologic/Psychiatric: Alert Oriented x3 No Motor/Sensory Deficits Normal Mood/Affect Skin: Normal Color Warm/Dry Lymphatic: No Adenopathy Results Results/Procedures Lab Laboratory Tests 06/27/16 13:18 Short Stay Diagnosis Discharge Diagnosis-Short Stay Admission Diagnosis Assessment: Steroid induced psychosis HTN Chronic back pain Final Discharge Diagnosis Assessment: Steroid induced psychosis HTN Chronic back pain Conclusion Plan Plan: DC and follow-up with Dr. Tiwari List prednisone as an allergy due to the severity of psychosis Clinical Quality Measures DVT/VTE Risk/Contraindication: Risk Factor Score Per Nursin RFS Level Per Nursing on Admit: 4+=Very High PENNY BARRERA DO Jun 28, 2016 10:53
[2016-06-28] MEDS ORDERED: HYDROcodone/APAP 5 MG/325 MG (LORTAB) TAB PO PRN (11:00)
--- NOTE | 2016-06-28 11:00 | Discharge Instructions ---
Discharge Instructions Discharge Medications New, Converted or Re-Newed RX: Other Continued Medications: Doxazosin Mesylate (Doxazosin Mesylate) 2 Mg Tablet 2 MG PO DAILY TAB Finasteride (Finasteride) 5 Mg Tablet 5 MG PO HS TAB Hctz/Lisinopril (Lisinopril-Hctz 10-12.5 Mg Tab) 1 Each Tablet 1 TAB PO DAILY TAB Hydrocodone/Acetaminophen (Hydrocodon -Acetaminophen 5-325) 1 Each Tablet 1-2 TAB PO Q6H PRN PAIN TAB Melatonin/Pyridoxine (Melatonin 3 mg Tablet) 1 Each Tablet 6 MG PO HS PRN SLEEP TAB Metaxalone (Metaxalone) 800 Mg Tablet 800 MG PO TID PRN MUSCLE SPASMS TAB Simvastatin (Simvastatin) 80 Mg Tablet 80 MG PO HS TAB Venlafaxine HCl (Effexor Xr) 75 Mg Cap.er.24h 225 MG PO HS TAKES 3 (75MG) CAPSULES PTSD/DEPRESSION CAP Zolpidem Tartrate (Zolpidem Tartrate) 10 Mg Tablet 10 MG PO HS TAB Patient Instructions Goal/Follow Up Appt: Dr Tiwari in 1 week Patient Instructions: Stop taking prednisone now and the future Activity & Diet Discharge Diet: No Restrictions Activity as Tolerated: Yes WILFRED MANZANARES DO Jun 28, 2016 11:00
[2016-06-28] MEDS ORDERED: VENlafaxine XR 75 MG (EFFEXOR XR) CAP PO SCH (21:00)
[2016-06-28] MEDS ORDERED: ZOLPIDEM 5 MG (AMBIEN) TAB PO SCH (21:00)
[2016-06-28] MEDS ORDERED: MELATONIN 3 MG TABLET PO PRN (21:00)
[2016-06-28] MEDS ORDERED: FINASTERIDE (PROSCAR) 5 MG TAB PO SCH (21:00)
[2016-06-28] MEDS ORDERED: SIMvastatin 40 MG (ZOCOR) TAB PO SCH (21:00)
[2016-06-29] MEDS ORDERED: HYDROCHLOROTHIAZIDE 12.5 MG (HCTZ) CAP PO SCH (09:00)
[2016-06-29] MEDS ORDERED: lisINopril 10 MG (PRINIVIL) TAB PO SCH (09:00)
[2016-06-29] MEDS ORDERED: doxAzosin 2 MG (CARDURA) TAB PO SCH (09:00)
== END 2016-06-28 12:15 | disposition home or self-care (01) | DRG 885 ==
LOC: EDUNIT# 12:27 → ER 12:29 → 4TH 14:04
PROVIDERS: ADMIT Internal Medicine; ATTEND Internal Medicine
DX: F23 Brief psychotic disorder (principal); T38.0X5A Adverse effect of glucocorticoids and synthetic analogues, initial encounter; E78.00 Pure hypercholesterolemia, unspecified; I10 Essential (primary) hypertension; F32.9 Major depressive disorder, single episode, unspecified; F43.10 Post-traumatic stress disorder, unspecified; M54.9 Dorsalgia, unspecified; G89.29 Other chronic pain
CPT/HCPCS: 36415; 70450; 71010; 72125; 72170; 80053; 81000; 85025; 85610; 96361; 96372; 96374

== ENCOUNTER 2018-07-23 16:40 | Emergency (ER) | payer OTHER, MEDICARE ==
[~2018-07-23] VITALS: Ht 180.3 cm; Wt 127.0 kg
[~2018-07-23 16:40] MED LIST changes: +ACHD5005 PO; +DOXA2TAB2 PO; -HYDR-3812 PO; +MELA1TAB10 PO; +META800T PO; +SIMV80TA21 PO
--- OUTSIDE RECORDS SUMMARY | 2018-07-23 16:48 | XMS REPORT | Continuity of Care Document ---
Author Author [facility] Organization [facility] Address Unknown Phone Unavailable Allergies Active Description Code Type Severity Reaction Onset Reported/Identified Relationship to Patient Clinical Status Yes NO KNOWN DRUG ALLERGIES NO KNOWN DRUG ALLERG UNKNOWN Yes PREDNISONE SEVERE OTHER Yes NKANo Known Allergies NKA Miscellaneous Allergy Unknown N/A 01/27/2014 Yes PREDINSONE PREDINSONE Severe N/A 06/28/2016 Medications Medication Packaging Start Date Stop Date Route Dosage Sig NORMAL SALINE 1000CC IV BAG INJ 0.9 % (NS 1000CC IV BAG) ml 03/15/2018 03/30/2018 CONTINUOUSEVERY 0 Hour MIDAZOLAM 2CC VIAL INJ 1 MG/CC (VERSED 2CC VIAL) MG 03/15/2018 03/15/2018 ONCE&1030 CEFAZOLIN VIAL INJ 1 GM (ANCEF) GM 03/15/2018 03/15/2018 ONCE&1100 FENTANYL INJ 100 MCG/2CC VIAL MCG 03/15/2018 03/15/2018 ONCE&1207 Problems Date Dx Coded Attending Type Code Diagnosis Diagnosed By 09/11/2012 Ot 272.4 HYPERLIPIDEMIA NEC/NOS 09/11/2012 Ot 401.9 HYPERTENSION NOS 09/11/2012 Ot 600.00 HYPERTROPHY (BENIGN) OF PROSTATE W/O URI 09/11/2012 Ot 729.5 PAIN IN LIMB 09/11/2012 Ot 786.59 CHEST PAIN NEC 09/11/2012 Ot 794.31 ABNORM ELECTROCARDIOGRAM 09/11/2012 Ot V17.49 FAMILY HISTORY OF OTHER CARDIOVASCULAR D 09/11/2012 Ot V58.69 OTH MED,LT, CURRENT USE 01/29/2014 MARTINEZ SINHA DO Ot 272.4 HYPERLIPIDEMIA NEC/NOS 01/29/2014 MARTINEZ SINHA DO Ot 276.51 DEHYDRATION 01/29/2014 MARTINEZ SINHA DO Ot 311 DEPRESSIVE DISORDER NEC 01/29/2014 MARTINEZ SINHA DO Ot 401.9 HYPERTENSION NOS 01/29/2014 MARTINEZ SINHA DO Ot 558.9 NONINF GASTROENTERIT NEC 11/10/2014 SHONA CABRERA [employer] Ot 443.9 11/10/2014 MARTINEZ SINHA DO Ot 786.50 11/10/2014 ANNA HEATH MD Ot 780.4 DIZZINESS AND GIDDINESS 11/10/2014 IVANA TSE, ANNA Garcia Ot 787.01 NAUSEA WITH VOMITING 11/10/2014 ANNA HEATH MD Ot 789.00 ABDOMINAL PAIN, UNSPECIFIED SITE 11/13/2014 SHONA CABRERA [employer] Ot 443.9 11/13/2014 MARTINEZ SINHA DO Ot 786.50 09/18/2015 SHONA CABRERA [employer] Ot 443.9 PERIPH VASCULAR DIS NOS 09/18/2015 MARTINEZ SINHA DO Ot 786.50 CHEST PAIN NOS 01/11/2016 A 782.1 RASH AND OTHER NONSPECIFIC SKIN ERUPTION 01/11/2016 A R21 RASH AND OTHER NONSPECIFIC SKIN ERUPTION 06/20/2016 SHONA CABRERA [employer] Ot 443.9 PERIPH VASCULAR DIS NOS 06/20/2016 MARTINEZ SINHA DO Ot 786.50 CHEST PAIN NOS 06/20/2016 SHONA CABRERA [employer] Ot 443.9 PERIPH VASCULAR DIS NOS 06/20/2016 MARTINEZ SINHA DO Ot 786.50 CHEST PAIN NOS 06/20/2016 BRITT TSE, ANTOINETTE Saba Ot I10 ESSENTIAL (PRIMARY) HYPERTENSION 06/20/2016 BRITT TSE, ANTOINETTE Saba Ot 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, IRENE 06/20/2016 BRITT TSE, ANTOINETTE Saba Ot M48.06 SPINAL STENOSIS, LUMBAR REGION 06/20/2016 BRITT TSE, ANTOINETTE Saba Ot 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, T 06/20/2016 BRITT TSE, ANTOINETTE Saba Ot M54.5 LOW BACK PAIN 06/20/2016 BRITT TSE, ANTOINETTE Saba Ot Z79.899 OTHER ALF (CURRENT) DRUG THERAPY 06/20/2016 SHONA CABRERA [employer] Ot 443.9 PERIPH VASCULAR DIS NOS 06/20/2016 MARTINEZ SINHA DO Ot 786.50 CHEST PAIN NOS 06/20/2016 SHONA CABRERA [employer] Ot 443.9 PERIPH VASCULAR DIS NOS 06/20/2016 MARTINEZ SINHA DO Ot 786.50 CHEST PAIN NOS 06/21/2016 SHONA CABRERA [employer] Ot 443.9 PERIPH VASCULAR DIS NOS 06/21/2016 MARTINEZ SINHA DO Ot 786.50 CHEST PAIN NOS 06/28/2016 BRITT TSE, ANTOINETTE Saba Ot I10 ESSENTIAL (PRIMARY) HYPERTENSION 06/28/2016 BRITT TSE, ANTOINETTE Saba Ot 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, IRENE 06/28/2016 BRITT TSE, ANTOINETTE Saba Ot M48.06 SPINAL STENOSIS, LUMBAR REGION 06/28/2016 BRITT TSE, ANTOINETTE Saba Ot 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, T 06/28/2016 BRITT TSE, ANTOINETTE Saba Ot M54.5 LOW BACK PAIN 06/28/2016 BRITT TSE, ANTOINETTE Saba Ot Z79.899 OTHER DISK RECOATER (CURRENT) DRUG THERAPY 06/28/2016 GLENNA BRUNNER WILFRED Ot E78.00 PURE HYPERCHOLESTEROLEMIA, UNSPECIFIED 06/28/2016 GLENNA BRUNNER WILFRED Ot F19.959 OTH PSYCHOACTV SUBSTANCE USE, UNSP W PSY 06/28/2016 GLENNA BRUNNER WILFRED Ot F23 BRIEF PSYCHOTIC DISORDER 06/28/2016 GLENNA BRUNNER WILFRED Ot F32.9 MAJOR DEPRESSIVE DISORDER, SINGLE EPISOD 06/28/2016 GLENNA BRUNNER WILFRED Ot F43.10 POST-TRAUMATIC STRESS DISORDER, UNSPECIF 06/28/2016 GLENNA BRUNNER WILFRED Ot G89.29 OTHER CHRONIC PAIN 06/28/2016 GLENNA BRUNNER WILFRED Ot I10 ESSENTIAL (PRIMARY) HYPERTENSION 06/28/2016 GLENNA RBUNNER WILFRED Ot M54.9 DORSALGIA, UNSPECIFIED 06/28/2016 GLENNA BRUNNER WILFRED Ot T38.0X5A ADVERSE EFFECT OF GLUCOCORT/SYNTH ANALOG 07/01/2016 SHONA CABRERA [employer] Ot 443.9 PERIPH VASCULAR DIS NOS 07/01/2016 MARTINEZ SINHA DO Ot 786.50 CHEST PAIN NOS 07/01/2016 FRANCISCO CABRERAHER L [employer] Ot 443.9 PERIPH VASCULAR DIS NOS 07/01/2016 GELLENDER DO, MARTINEZ A Ot 786.50 CHEST PAIN NOS 07/04/2016 BAIMA, SHONA L [employer] Ot 443.9 PERIPH VASCULAR DIS NOS 07/04/2016 GELLENDER DO, MARTINEZ A Ot 786.50 CHEST PAIN NOS 07/05/2016 BAIMA, SHONA L [employer] Ot 443.9 PERIPH VASCULAR DIS NOS 07/05/2016 GELLENDER DO, MARTINEZ A Ot 786.50 CHEST PAIN NOS 07/14/2016 BAIMA, SHONA L [employer] Ot 443.9 PERIPH VASCULAR DIS NOS 07/14/2016 GELLENDER DO, MARTINEZ A Ot 786.50 CHEST PAIN NOS 07/14/2016 BAIMA, SHONA L [employer] Ot 443.9 PERIPH VASCULAR DIS NOS 07/14/2016 GELLENDER DO, MARTINEZ A Ot 786.50 CHEST PAIN NOS 08/04/2016 BAIMA SHONA L [employer] Ot 443.9 PERIPH VASCULAR DIS NOS 08/04/2016 GELLENDER DO, MARTINEZ A Ot 786.50 CHEST PAIN NOS 08/04/2016 BAIMA, SHONA L [employer] Ot 443.9 PERIPH VASCULAR DIS NOS 08/04/2016 GELLENDER DO, MARTINEZ A Ot 786.50 CHEST PAIN NOS 08/14/2016 BAIMA, SHONA L [employer] Ot 443.9 PERIPH VASCULAR DIS NOS 03/15/2018 FRANCINE HINDS 727.05 OTHER TENOSYNOVITIS OR HAND AND WRIST 03/15/2018 FRANCINE HINDS 836.0 TEAR OF MEDIAL CARTILAGE OR MENISCUS OF KNEE, CURRENT 03/15/2018 FRANCINE HINDS 836.1 TEAR OF LATERAL CARTILAGE OR MENISCUS OF KNEE, CURRENT 03/15/2018 FRANCINE HINDS M65.9 SYNOVITIS AND TENOSYNOVITIS, UNSPECIFIED 03/15/2018 FRANCINE HINDS S83.241A OTH TEAR OF MEDIAL MENISCUS, CURRENT INJURY, R KNEE, INIT 03/15/2018 FRANCINE HINDS S83.281A OTH TEAR OF LAT MENSC, CURRENT INJURY, RIGHT KNEE, INIT 03/19/2018 W V54.89 OTHER ORTHOPEDIC AFTERCARE 03/19/2018 W Z47.89 ENCOUNTER FOR OTHER ORTHOPEDIC AFTERCARE 04/16/2018 W V54.89 OTHER ORTHOPEDIC AFTERCARE 04/16/2018 W Z47.89 ENCOUNTER FOR OTHER ORTHOPEDIC AFTERCARE Procedures There is no data. Results Test Result Range Lipid Panel - 06/22/16 15:15 C/HDL 4.3 3.7-6.7 Cholesterol 175 mg/dL 100-240 HDL 41 mg/dL 30-85 LDL-Calculated 91 mg/dL 0-100 Trig 216 mg/dL 35-160 VLDL 43 mg/dL 0-42 Complete blood count (CBC) with automated white blood cell (WBC) differential - 06/27/16 13:18 Blood leukocytes automated count (number/volume) 11.9 10*3/uL 4.3-11.0 Blood erythrocytes automated count (number/volume) 4.66 10*6/uL 4.35-5.85 Venous blood hemoglobin measurement (mass/volume) 13.3 g/dL 13.3-17.7 Blood hematocrit (volume fraction) 41 % 40-54 Automated erythrocyte mean corpuscular volume 87 [foz_us] 80-99 Automated erythrocyte mean corpuscular hemoglobin (mass per erythrocyte) 29 pg 25-34 Automated erythrocyte mean corpuscular hemoglobin concentration measurement ( mass/volume) 33 g/dL 32-36 Automated erythrocyte distribution width ratio 13.3 % 10.0-14.5 Automated blood platelet count (count/volume) 324 10*3/uL 130-400 Automated blood platelet mean volume measurement 9.6 [foz_us] 7.4-10.4 Automated blood neutrophils/100 leukocytes 68 % 42-75 Automated blood lymphocytes/100 leukocytes 22 % 12-44 Blood monocytes/100 leukocytes 10 % 0-12 Automated blood eosinophils/100 leukocytes 1 % 0-10 Automated blood basophils/100 leukocytes 0 % 0-10 Blood neutrophils automated count (number/volume) 8.1 10*3 1.8-7.8 Blood lymphocytes automated count (number/volume) 2.6 10*3 1.0-4.0 Blood monocytes automated count (number/volume) 1.1 10*3 0.0-1.0 Automated eosinophil count 0.1 10*3/uL 0.0-0.3 Automated blood basophil count (count/volume) 0.1 10*3/uL 0.0-0.1 PT panel in platelet poor plasma by coagulation assay - 06/27/16 13:18 Prothrombin time (PT) in platelet poor plasma by coagulation assay 13.7 s 12.2-14.7 INR in platelet poor plasma or blood by coagulation assay 1.1 0.8-1.4 Comprehensive metabolic panel - 06/27/16 13:18 Serum or plasma sodium measurement (moles/volume) 137 mmol/L 135-145 Serum or plasma potassium measurement (moles/volume) 3.6 mmol/L 3.6-5.0 Serum or plasma chloride measurement (moles/volume) 106 mmol/L 98-107 Carbon dioxide 23 mmol/L 21-32 Serum or plasma anion gap determination (moles/volume) 8 mmol/L 5-14 Serum or plasma urea nitrogen measurement (mass/volume) 14 mg/dL 7-18 Serum or plasma creatinine measurement (mass/volume) 0.90 mg/dL 0.60-1.30 Serum or plasma urea nitrogen/creatinine mass ratio 16 NRG Serum or plasma creatinine measurement with calculation of estimated glomerular filtration rate > NRG Serum or plasma glucose measurement (mass/volume) 142 mg/dL 70-105 Serum or plasma calcium measurement (mass/volume) 8.4 mg/dL 8.5-10.1 Serum or plasma total bilirubin measurement (mass/volume) 0.2 mg/dL 0.1-1.0 Serum or plasma alkaline phosphatase measurement (enzymatic activity/volume) 56 U/L 40-136 Serum or plasma aspartate aminotransferase measurement (enzymatic activity/ volume) 21 U/L 5-34 Serum or plasma alanine aminotransferase measurement (enzymatic activity/volume ) 36 U/L 0-55 Serum or plasma protein measurement (mass/volume) 6.9 g/dL 6.4-8.2 Serum or plasma albumin measurement (mass/volume) 3.7 g/dL 3.2-4.5 Complete urinalysis with reflex to culture - 06/27/16 18:55 Urine color determination YELLOW NRG Urine clarity determination CLEAR NRG Urine pH measurement by test strip 7 5-9 Specific gravity of urine by test strip 1.010 1.016- 1.022 Urine protein assay by test strip, semi-quantitative NEGATIVE NEGATIVE Urine glucose detection by automated test strip NEGATIVE NEGATIVE Erythrocytes detection in urine sediment by light microscopy NEGATIVE NEGATIVE Urine ketones detection by automated test strip NEGATIVE NEGATIVE Urine nitrite detection by test strip NEGATIVE NEGATIVE Urine total bilirubin detection by test strip NEGATIVE NEGATIVE Urine urobilinogen measurement by automated test strip (mass/volume) NORMAL NORMAL Urine leukocyte esterase detection by dipstick NEGATIVE NEGATIVE Automated urine sediment erythrocyte count by microscopy (number/high power field) NONE NRG Automated urine sediment leukocyte count by microscopy (number/high power field ) RARE NRG Bacteria detection in urine sediment by light microscopy NEGATIVE NRG Crystals detection in urine sediment by light microscopy NONE NRG Casts detection in urine sediment by light microscopy NONE NRG Mucus detection in urine sediment by light microscopy SMALL NRG Complete urinalysis with reflex to culture NO NRG Urinalysis - 03/08/18 13:21 Icotest N/A Negative Urine Volume Urine Volume Sufficient (10mL) Urine-Appearance Clear Clear Urine-Bacteria Trace Urine-Bilirubin Negative Negative Urine-Blood Negative Negative Urine-Color Yellow Colorless-Lt. Yellow Urine-Epithelial Cells 0-5/HPF Urine-Glucose Negative Negative Urine-Ketones Negative Negative Urine-Leukocytes Negative Negative Urine-Nitrite Negative Negative Urine-pH 5.5 5-8.5 Urine-Protein Negative Negative Urine-RBC Negative Urine-Specific [place] 1.025 1.000-1.030 Urine-WBC Negative Urobilinogen 0.2 E.U./dL 0.2-1.0 Comprehensive Metabolic Panel - 03/08/18 13:21 Albumin 4.3 g/dL 3.6-5.1 ALP 70 U/L 35-130 ALT 22 U/L 6-45 Anion Gap 14 6-14 AST 21 U/L 2-40 BUN 18 mg/dL 5-25 Calcium 9.1 mg/dL 8.3-10.4 Chloride 106 mmol/L 95-114 CO2 24 mEq/L 22-33 Creat 1.21 mg/dL 0.50-1.50 eGFR 59 mL/min/1.73m2 >59 Globulin 3.7 g/dL 2.3-3.5 Glucose 96 mg/dL 70-110 Osmo 291 280-295 Potassium 4.4 mmol/L 3.5-5.3 Sodium 140 mmol/L 134-148 TBil 0.3 mg/dL 0.2-1.2 TP 8.0 g/dL 6.0-8.3 Nasal Culture - 03/08/18 13:21 FINAL CULTURE RESULTS MRSA Negative Nasal Culture MEDIA PLATED Setup at 13:32 on 03/08/2018 Encounters ACCT No. Visit Date/Time Discharge Status Pt. 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 (?) [id number] 06/20/2016 17:53:00 06/20/2016 20:18:00 DIS Emergency BRITT TSE, ANTOINETTE Saba [facility] ER BACK PAIN [id number] 11/10/2014 17:59:00 11/10/2014 22:27:00 DIS Emergency IVANA TSE, ANNA Garcia [facility] ER SOA;DIZZINESS; VOMITING [id number] 01/28/2014 11:00:00 01/29/2014 11:40:00 DIS Inpatient MARCELLSOBORNE MARTINEZ Mackenzie [facility] 4TH COLITIS, HEMATOCHEZIA , DIARRHEA [id number] 11/28/2012 12:47:00 11/28/2012 23:59:59 CLS Outpatient ERNESTINE MARTINEZ BRUNNER [facility] RAD PAIN IN RT RIB [id number] 10/31/2012 14:37:00 10/31/2012 23:59:59 CLS Outpatient SHONA CABRERA [facility] RAD CLAUDICATION [id number] 09/11/2012 11:01:00 Document Registration [id number] 03/15/2018 07:34:00 03/15/2018 12:53:00 DIS Outpatient FRANCINE HINDS [id number] 03/08/2018 13:22:00 03/08/2018 23:59:00 DIS Outpatient FRANCINE HINDS [id number] 06/29/2016 14:56:00 06/29/2016 23:59:00 DIS Outpatient OMKAR ANGELES [id number] 06/23/2016 07:38:00 06/23/2016 23:59:00 DIS Outpatient OMKAR ANGELES [id number] 03/19/2018 10:36:00 Document Registration [id number] 03/14/2018 13:50:47 Document Registration [id number] 01/11/2016 14:56:00 Document Registration [id number] 11/10/2014 18:49:20 ACT Document Registration [id number] 03/15/2018 00:00:00 Document Registration
--- NOTE | 2018-07-23 17:42 | Diagnostic Imaging Report ---
PROCEDURE: CT head and maxillofacial without contrast. TECHNIQUE: Multiple contiguous axial images were obtained through the head and facial bones without the use of intravenous contrast. INDICATION: Trauma, swelling, and pain. COMPARISON: Head CT compared to 06/27/2016. FINDINGS: CT head: There is no intracranial hemorrhage and there are no acute extra-axial fluid collections. The basilar cisterns are patent. The sulci non effaced. The ventricular system is nondilated and nondisplaced. There is no calvarial fracture deformity. There is progressive membrane disease and partial opacification in the lower left frontal sinus as well as increased membrane thickening and opacification of multiple ethmoid air cells, anterior greater than posterior. There is mild membrane thickening in the bilateral maxillary sinuses, similar to the prior. Slight membrane disease thickens of the hitchcock of the sphenoid sinuses, unchanged. There is no mastoid effusion. The middle ear cavities are unremarkable. Orbits appeared nonacute. CT facial bones: Paranasal sinus membrane thickening increased without air-fluid level. Seen best on axial images 35 through 37, a fracture of the anterior and posterolateral wall of the right maxillary sinus inferiorly is present without diastasis. This is below the [id number] of the prior head CT. It showed no evidence for healing and is presumed acute. No retrobulbar or postseptal hematoma. The orbital floors are intact. Orbital roofs and rims intact. Left maxillary sinus wall is intact. The mandible and zygomatic arches intact. Nasal bones and bony nasal septum intact with leftward septal deviation and spurring, chronic. Anterior and posterior hitchcock of the frontal sinuses are intact. IMPRESSION: 1. CT head: No calvarial fracture deformity or intracerebral hemorrhage. 2. CT facial bones: Increased paranasal sinus membrane thickening without air-fluid level. Despite the absence of air-fluid levels, there appears to be fracture through the anterior and posterolateral hitchcock of the inferior right maxillary sinus admittedly below the [id number] of prior but showing no evidence for healing and presumed acute, correlate with point tenderness to that level. No other potential facial fracture is found. Dictated by: Dictated on workstation # [id number]
--- NOTE | 2018-07-23 18:07 | ED Head Injury ---
General Chief Complaint: Head/Cervical Problems Stated Complaint: CABLE HIT HIM LEFT SIDE OF HEAD Nursing Triage Note: THE PT IS AMBULATORY TO THE ROOM WITHOUT DIFFICULTY. NO DISTRESS IS SEEN ON ARRIVAL. LOC IS NORMAL FOR THE PT. Source: patient Exam Limitations: no limitations History of Present Illness Date Seen by Provider: Jul 23, 2018 Time Seen by Provider: 17:00 Initial Comments 72-year-old male who presents to the emergency room with complaints of left- sided head pain after being struck in the head with a 1 inch cable at work. He has some ecchymosis to his left cheek. He denies loss of consciousness or neck pain. He is alert and oriented on arrival to the emergency room. Occurred: just prior to arrival Location: temporal (left) Loss of Consciousness: no loss of consciousness Associated Systoms: Denies Symptoms Allergies and Home Medications Allergies Uncoded Allergies: PREDINSONE (Adverse Reaction, Severe, 06/28/16) PREDNISONE INDUCED PSYCHOSIS Home Medications Doxazosin Mesylate 2 Mg Tablet, 2 MG PO DAILY, (Reported) Finasteride 5 Mg Tablet, 5 MG PO HS, (Reported) Hctz/Lisinopril 1 Each Tablet, 1 TAB PO DAILY, (Reported) Hydrocodone Bit/Acetaminophen 1 Each Tablet, 1-2 TAB PO Q6H PRN for PAIN, ( Reported) Melatonin/Pyridoxine 1 Each Tablet, 6 MG PO HS PRN for SLEEP, (Reported) Metaxalone 800 Mg Tablet, 800 MG PO TID PRN for MUSCLE SPASMS, (Reported) Simvastatin 80 Mg Tablet, 80 MG PO HS, (Reported) Venlafaxine HCl 75 Mg Cap.er.24h, 225 MG PO HS, (Reported) TAKES 3 (75MG) CAPSULES Zolpidem Tartrate 10 Mg Tablet, 10 MG PO HS, (Reported) Patient Home Medication List Home Medication List Reviewed: Yes Review of Systems Review of Systems Constitutional: no symptoms reported, see HPI Psychiatric/Neurological: See HPI, Headache (Left-sided head pain) All Other Systems Reviewed Negative Unless Noted: Yes Past Eponvon-Zcdijb-Faiihy Hx Past Med/Social Hx: Reviewed Nursing Past Med/Soc Hx Patient Social History Alcohol Beverage of Choice: Beer Recent Foreign Travel: No Contact w/Someone Who Travel: No Recent Infectious Disease Expo: No Recent Hopitalizations: Yes Physical Abuse: No Sexual Abuse: No Mistreated: No Fear: No Immunizations Up To Date Date of Pneumonia Vaccine: Sep 03, 2012 Date of Influenza Vaccine: Jan 26, 2016 Past Medical History Surgeries: Yes ( titanum plate in neck placed 2001, bilat rotator cuffs & carpal tunnels,) Appendectomy, Gallbladder, Orthopedic Respiratory: No Currently Using CPAP: No Currently Using BIPAP: No Cardiac: Yes (HEART CATH) High Cholesterol, Hypertension Neurological: No Reproductive Disorders: No Sexually Transmitted Disease: No HIV/AIDS: No Gastrointestinal: Yes (colon "collapses") Hemorrhoids Musculoskeletal: No Degenerate Disk Disease Endocrine: No Loss of Vision: Denies Hearing Impairment: Denies Cancer: No Psychosocial: Yes PTSD, Depression Integumentary: Yes (had some places froze off on arm (sun exposure)) Recent Skin Changes Blood Disorders: No Adverse Reaction/Blood Tranf: No Family Medical History Reviewed Nursing Family Hx Cardiovascular disease Colon cancer Completed stroke Hypertension Neoplasm Physical Exam Vital Signs Vital Signs - First Documented 07/23/18 17:00 Temp 98.0 Pulse 95 Resp 18 B/P (MAP) 133/87 (102) Pulse Ox 95 Capillary Refill : Less Than 3 Seconds Height, Weight, BMI Height: 5'11.00" Weight: 280lbs. 5.0oz. [id number]; 34.6 BMI Method:Estimated General Appearance: WD/WN, no apparent distress HEENT: PERRL/EOMI, normal ENT inspection, TMs normal, pharynx normal Neck: non-tender, full range of motion, supple, normal inspection Cardiovascular: normal peripheral pulses, regular rate, rhythm, no edema, no gallop, no JVD, no murmur Respiratory: chest non-tender, lungs clear, normal breath sounds, no respiratory distress, no accessory muscle use Extremities: normal capillary refill Crainal Nerves: normal hearing, normal speech, PERRL Coordination/Gait: normal finger to nose Motor/Sensory: no motor deficit, no sensory deficit Skin: normal color, warm/dry, ecchymosis (Ecchymosis to the left cheek) Shirin Coma Score Best Eye Response: (4) Open Spontaneously Best Verbal Response: (5) Oriented Best Motor Response: (6) Obeys Commands Shirin Total: 15 Progress/Results/Core Measures Results/Orders My Orders Vital Signs/I&O Blood Pressure Mean: 102 Progress Progress Note : Time: 18:02 Progress Note I have seen and evaluated the patient. I've informed him of his imaging studies. He is not tender to his maxillary sinuses. He denies any history of nasal trauma. He denies being struck directly to his nose area. He agrees with plan of care, plans for discharge, return precautions were given. Diagnostic Imaging Diagonstic Imaging: CT Plain Films/CT/US/NM/MRI: facial bones, head Comments NAME: JEAN PAUL FLORES [facility] REC#: [id number] PT STATUS: DEP ER : 1945 PHYSICIAN: TYLER MINOR ADMIT DATE: 07/23/18/ER Signed Date of Exam: 07/23/18 CT HEAD/MAXILLOFACIAL WO PROCEDURE: CT head and maxillofacial without contrast. TECHNIQUE: Multiple contiguous axial images were obtained through the head and facial bones without the use of intravenous contrast. INDICATION: Trauma, swelling, and pain. COMPARISON: Head CT compared to 06/27/2016. FINDINGS: CT head: There is no intracranial hemorrhage and there are no acute extra-axial fluid collections. The basilar cisterns are patent. The sulci non effaced. The ventricular system is nondilated and nondisplaced. There is no calvarial fracture deformity. There is progressive membrane disease and partial opacification in the lower left frontal sinus as well as increased membrane thickening and opacification of multiple ethmoid air cells, anterior greater than posterior. There is mild membrane thickening in the bilateral maxillary sinuses, similar to the prior. Slight membrane disease thickens of the hitchcock of the sphenoid sinuses, unchanged. There is no mastoid effusion. The middle ear cavities are unremarkable. Orbits appeared nonacute. CT facial bones: Paranasal sinus membrane thickening increased without air-fluid level. Seen best on axial images 35 through 37, a fracture of the anterior and posterolateral wall of the right maxillary sinus inferiorly is present without diastasis. This is below the waows-zc-lhda of the prior head CT. It showed no evidence for healing and is presumed acute. No retrobulbar or postseptal hematoma. The orbital floors are intact. Orbital roofs and rims intact. Left maxillary sinus wall is intact. The mandible and zygomatic arches intact. Nasal bones and bony nasal septum intact with leftward septal deviation and spurring, chronic. Anterior and posterior hitchcock of the frontal sinuses are intact. IMPRESSION: 1. CT head: No calvarial fracture deformity or intracerebral hemorrhage. 2. CT facial bones: Increased paranasal sinus membrane thickening without air-fluid level. Despite the absence of air-fluid levels, there appears to be fracture through the anterior and posterolateral hitchcock of the inferior right maxillary sinus admittedly below the fnexh-ao-uroa of prior but showing no evidence for healing and presumed acute, correlate with point tenderness to that level. No other potential facial fracture is found. Dictated by: Dictated on workstation # [id number] Dict: 07/23/18 1718 Trans: 07/23/181815 Interpreted by: YOMI GARDUNO Electronically signed by: YOMI GARDUNO 07/23/181815 Departure Impression Primary Impression: Minor head injury Additional Impression: Concussion Disposition: 01 HOME, SELF-CARE Condition: Stable/Unchanged Departure-Patient Inst. Decision time for Depature: 18:04 Referrals: OMKAR ANGELES MD (PCP/Family) Primary Care Physician Patient Instructions: Minor Head Injury (DC), Concussion, Adult (DC) Add. Discharge Instructions: You may use ibuprofen and Tylenol as directed by the bottle for pain relief. Reduce stimulation such as bright lights, loud noises, TV screens. You may return to work if you are symptom-free. Do not operate heavy machinery if you continue to have dizziness, nausea, or any other symptoms. Follow-up with your primary care provider within 1 week for recheck. Return back to the emergency room for worsening symptoms or concerns as needed. All discharge instructions reviewed with patient and/or family. Voiced understanding. TYLER MINOR Jul 23, 2018 18:07
[2018-07-23 18:15] VITALS: BP 133/87
== END 2018-07-23 18:19 | disposition home or self-care (01) ==
LOC: EDUNIT# 16:40 → ER 16:41
DX: S06.0X0A Concussion without loss of consciousness, initial encounter (principal); E78.00 Pure hypercholesterolemia, unspecified; I10 Essential (primary) hypertension; F43.10 Post-traumatic stress disorder, unspecified; F32.9 Major depressive disorder, single episode, unspecified; Z87.19 Personal history of other diseases of the digestive system; Z95.9 Presence of cardiac and vascular implant and graft, unspecified; Z80.0 Family history of malignant neoplasm of digestive organs; Z82.49 Family history of ischemic heart disease and other diseases of the circulatory system; Z88.8 Allergy status to other drugs, medicaments and biological substances; Z90.49 Acquired absence of other specified parts of digestive tract; Z98.890 Other specified postprocedural states; Z98.1 Arthrodesis status; W22.03XA Walked into furniture, initial encounter
CPT/HCPCS: 70450; 70486

== ENCOUNTER → 2021-06-11 | Outpatient (CLI) | payer MEDICARE, OTHER | LOC: LABNPT 07:19 | PROVIDERS: ATTEND Orthopaedic Surgery | DX: Z01.812 Encounter for preprocedural laboratory examination (principal); Z20.822 Contact with and (suspected) exposure to COVID-19 | CPT/HCPCS: 87635 ==

== ENCOUNTER 2022-01-19 15:05 | Emergency (ER) | payer OTHER, MEDICARE ==
--- NOTE | 2022-01-19 15:28 | ED Head Injury ---
General Chief Complaint: Head/Cervical Problems Stated Complaint: RIGHT EYE PAIN - RIGHT SHOULDER PAIN Source: patient, other ([facility] report) Exam Limitations: no limitations History of Present Illness Date Seen by Provider: Jan 19, 2022 Time Seen by Provider: 15:06 Initial Comments 76-year-old male with past medical history most notably for hypertension and hyperlipidemia coming in as referral from [facility] after trauma. 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 He is unsure if he passed out, but does not believe he did. He does not take any blood thinners. Has significant headache, right- sided facial pain, neck pain, right shoulder pain, and right upper chest pain. He has been taking Tylenol for the pain. Went to an ER in [place] yesterday in which an x-ray of the shoulder was completed and was negative for fracture so he was referred out. They glued the laceration to the right side of his eye. He says his last tetanus shot was more than 10 years ago. He says he had no CT imaging. He does have some blurry vision, but otherwise is denying any other acute complaints. Has been ambulatory since the injury. Allergies and Home Medications Allergies Uncoded Allergies: PREDINSONE (Adverse Reaction, Severe, 06/28/16) PREDNISONE INDUCED PSYCHOSIS Patient Home Medication List Home Medication List Reviewed: Yes Doxazosin Mesylate (Doxazosin Mesylate) 2 Mg Tablet, 2 MG PO DAILY, (Reported) Entered as Reported by: NIRMALA URRUTIA on 06/27/16 1550 Finasteride (Finasteride) 5 Mg Tablet, 5 MG PO HS, (Reported) Entered as Reported by: ANTOINE RAPP on 11/10/14 1939 Hctz/Lisinopril (Lisinopril-Hctz 10-12.5 Mg Tab) 1 Each Tablet, 1 TAB PO DAILY, (Reported) Entered as Reported by: SHELLY DIOP on 09/11/12 1148 Hydrocodone Bit/Acetaminophen (Lortab 5 Mg Tablet) 1 Each Tablet, 1-2 TAB PO Q6H PRN for PAIN, (Reported) Entered as Reported by: NIRMALA URRUTIA on 06/27/16 1541 Melatonin/Pyridoxine (Melatonin 3 mg Tablet) 1 Each Tablet, 6 MG PO HS PRN for SLEEP, (Reported) Entered as Reported by: NIRMALA URRUTIA on 06/27/16 1550 Metaxalone (Metaxalone) 800 Mg Tablet, 800 MG PO TID PRN for MUSCLE SPASMS, (Reported) Entered as Reported by: NIRMALA URRUTIA on 06/27/16 1541 Simvastatin (Simvastatin) 80 Mg Tablet, 80 MG PO HS, (Reported) Entered as Reported by: NIRMALA URRUTIA on 06/27/16 1550 Venlafaxine HCl (Effexor Xr) 75 Mg Cap.er.24h, 225 MG PO HS, (Reported) Entered as Reported by: ISAIAH SAAVEDRA on 01/27/14 1642 Zolpidem Tartrate (Zolpidem Tartrate) 10 Mg Tablet, 10 MG PO HS, (Reported) Entered as Reported by: SHELLY DIOP on 09/11/12 1148 Review of Systems Review of Systems Constitutional: No fever Eyes: Blurred Vision Ears, Nose, Mouth, Throat: no symptoms reported Respiratory: no symptoms reported Cardiovascular: no symptoms reported Gastrointestinal: no symptoms reported Musculoskeletal: see HPI Skin: no symptoms reported Psychiatric/Neurological: No Symptoms Reported Endocrine: No Symptoms Reported Hematologic/Lymphatic: No Symptoms Reported All Other Systems Reviewed Negative Unless Noted: Yes Past Gnolmik-Rbpung-Edorpo Hx Patient Social History Tobacco Use?: No Substance use?: No Alcohol Use?: Yes Past Medical History Surgeries: Yes ( titanum plate in neck placed 2001, bilat rotator cuffs & carpal tunnels,) Appendectomy, Gallbladder, Orthopedic Respiratory: No Currently Using CPAP: No Currently Using BIPAP: No Cardiac: Yes (HEART CATH) High Cholesterol, Hypertension Neurological: No Reproductive Disorders: No Sexually Transmitted Disease: No HIV/AIDS: No Gastrointestinal: Yes (colon "collapses") Hemorrhoids Musculoskeletal: No Degenerate Disk Disease Endocrine: No Loss of Vision: Denies Hearing Impairment: Denies Cancer: No Psychosocial: Yes PTSD, Depression Integumentary: Yes (had some places froze off on arm (sun exposure)) Recent Skin Changes Blood Disorders: No Adverse Reaction/Blood Tranf: No Family Medical History Cardiovascular disease Colon cancer Completed stroke Hypertension Neoplasm Physical Exam Vital Signs Capillary Refill : Height, Weight, BMI Height: 5'11.00" Weight: 280lbs. 5.0oz. 127.182427qn; 34.6 BMI Method:Estimated General Appearance: WD/WN, no apparent distress HEENT: PERRL/EOMI, pharynx normal, other (Lacerations been repaired to the right side of lateral to his eye with glue that is well opposed, no proptosis, normal conjunctiva, pupils 3 mm bilaterally and reactive, 20/40 visual acuity with eyes together and separate, normal visual hagan, normal extraocular movements) Neck: full range of motion, supple, normal inspection, other (No midline tenderness but has muscular tenderness along the right side of his neck) Cardiovascular: regular rate, rhythm, no edema, no murmur Respiratory: lungs clear, normal breath sounds, no respiratory distress, no accessory muscle use, other (Chest tender along the right upper portion with some bruising) Gastrointestinal: normal bowel sounds, non tender, soft; No distended, No guarding, No rebound Back: normal inspection, no CVA tenderness, no vertebral tenderness Extremities: normal range of motion, no pedal edema, no calf tenderness, normal capillary refill, other (Right shoulder with some bruising and abrasions to the superior aspect of it, normal range of motion and strength, tender along the trap muscle going down to the deltoid) Psychiatric: alert, oriented x 3 Crainal Nerves: normal hearing, normal speech, PERRL Coordination/Gait: normal finger to nose, normal gait Motor/Sensory: no motor deficit, no sensory deficit Skin: normal color, warm/dry Lymphatic: no adenopathy Shirin Coma Score Best Eye Response: (4) Open Spontaneously Best Verbal Response: (5) Oriented Best Motor Response: (6) Obeys Commands Progress/Results/Core Measures Results/Orders My Orders Orders - KHADAR UMANZOR MD Dipht,Pertuss(Acell),Tet Adult (Boostrix (01/19/22 15:30) Ct Chest Wo (01/19/22 15:22) Ct Head/Face/Cervical Wo (01/19/22 15:22) Shoulder, Right, 3 Views (01/19/22 15:22) Oxycodone Immediate Rel Tablet (Oxyir Ta (01/19/22 15:30) Fluorescein Strips (Lcqvd-J-Mxesmc) (01/19/22 15:30) Tetracaine 0.5% Ophth Arlet Sdv (Tetracai (01/19/22 15:30) Medications Given in ED Current Medications Medications Dose Ordered Sig/Chika Route Start Time Stop Time Status Last Admin Dose Admin Diphtheria/ Tetanus/Acell Pertussis 0.5 ml ONCE ONCE IM 01/19/22 15:30 01/19/22 15:31 DC 01/19/22 15:30 0.5 ML Fluorescein Sodium ONCE ONCE OP 01/19/22 15:30 01/19/22 15:31 DC 01/19/22 16:13 1 MG Oxycodone HCl 5 mg ONCE ONCE PO 01/19/22 15:30 01/19/22 15:31 DC 01/19/22 15:29 5 MG Tetracaine HCl 1 OR 2 DROPS INTO AFFEC... ONCE ONCE OP 01/19/22 15:30 01/19/22 15:31 DC 01/19/22 16:13 1 ML Progress Progress Note : Progress Note 76-year-old male coming in delayed after trauma yesterday when she was struck in the head with a large force throwing a backwards 5 feet. ABCs were intact and vitals were stable on presentation with a GCS of 15. The wound is well opposed on his eye with the glue. Tetanus updated today. Visual acuity is 20/40 in bilateral eyes with normal extraocular movements and no signs of orbital hematoma. Eye pressures for each eye was 14 with Armin-Pen. There is no signs of trauma on fluorescein exam of his eye including no corneal abrasion. CT head, face, cervical spine, chest obtained and negative for acute fracture or significant abnormality. X-ray right shoulder with likely rotator cuff pathology but no fracture. Patient was given oxycodone initially and is feeling much better. I believe he is stable for discharge with outpatient follow-up. He was sent home with strict return precautions. Diagnostic Imaging Diagonstic Imaging: Xray (right shoulder), CT (head, cspine, face, chest) Comments [facility] [place], [place] NAME: JEAN PAUL FLORES [facility] REC#: [id number] PT STATUS: REG ER : 1945 PHYSICIAN: KHADAR UMANZOR MD ADMIT DATE: 01/19/22/ER Signed Date of Exam:01/19/22 CT HEAD/FACE/CERVICAL WO PROCEDURE: CT head, face, and cervical spine without contrast. TECHNIQUE: Multiple contiguous axial images were obtained through the head, neck, and facial bones without the use of intravenous contrast. Sagittal and coronal reformations through the cervical spine and facial bones were also performed. Auto Exposure Controls were utilized during the CT exam to meet ALARA standards for radiation dose reduction. INDICATION: Hit in the face by a cable. Knocked down. Right eye swelling. Head and neck pain. Headache. COMPARISON: 07/23/2018. FINDINGS: CT head: The ventricles and cortical sulci are age-appropriate. There is no midline shift or mass-effect. No acute intracranial hemorrhage is seen. There is no CT evidence of acute territorial ischemia. No focal masses or collections are present. The calvarium is intact. CT face: No acute facial fractures are visualized. The mandible, zygomatic arches, and pterygoid plates are intact. The bilateral TMJ demonstrate normal articulation. No nasal bone fractures. The bony nasal septum is slightly deviated to the right without fracture. Mucosal thickening is seen throughout the paranasal sinuses. The mastoid air cells are well pneumatized. Preseptal soft tissue edema is seen overlying the right orbit. No post septal inflammation. The globes are intact, bilaterally. No radiopaque foreign bodies are seen. No evidence of orbital rim fracture. CT cervical spine: No acute fracture or dislocation is seen in the cervical spine. No focal osseous lesions. There is straightening of the cervical spine. ACDF changes are visualized at C5-C6 with osseous bridging across the C5-C6 level. No evidence of hardware fracture or loosening. Bulky anterior osteophytes are seen in the cervical spine. The craniocervical junction is well maintained. Soft tissues of the neck are unremarkable. The included lung apices are clear. The included lungs are clear. IMPRESSION: 1. No hemorrhage or focal intra-axial mass. No CT evidence of large acute territorial ischemia. 2. No acute fracture or dislocation in the cervical spine. 3. No acute facial fractures. 4. Preseptal soft tissue edema on the right. No post septal inflammation or globe rupture. 5. ACDF changes at the C5-C6 level with osseous bridging across the C5-C6 disc space. No hardware complication. Dictated by: Dictated on workstation # [id number] Dict: 01/19/22 1600 Trans: 01/19/22 1610 PJE [id number] Interpreted by: TAI GOLDSMITH DO Electronically signed by: TAI GOLDSMITH DO 01/19/22 1610 [facility] [place] [place] NAME: JEAN PAUL FLORES [facility] REC#: [id number] PT STATUS: REG ER : 1945 PHYSICIAN: KHADAR UMANZOR MD ADMIT DATE: 01/19/22/ER Draft Date of Exam:01/19/[address] CHEST WO TECHNIQUE: Multiple contiguous axial images were obtained through the chest without the use of intravenous contrast. All CT scans use one or more of the following dose optimizing techniques: automated exposure control, MA and/or KvP adjustment based on a patient size and exam type, or iterative reconstruction. INDICATION: Right-sided chest pain. Trauma COMPARISON: None available FINDINGS: Lungs and airway: No acute traumatic injury in the trachea. Small peritracheal air cyst in the upper mediastinum. No consolidations to suggest laceration or contusion. There are no suspicious pulmonary nodules. Calcified granuloma in the left lower lobe. Pleura: There is no pleural effusion or pneumothorax. Heart and mediastinum: Thyroid is normal. No supraclavicular or axillary lymphadenopathy. No mediastinal or hilar lymphadenopathy. Heart is normal in size without pericardial effusion. Moderate coronary artery calcifications are present. Normal caliber thoracic aorta. No features of mediastinal hemorrhage by noncontrast imaging. Upper abdomen: A 1 cm exophytic nodule off the upper pole right kidney is stable since 2015 and can be considered benign. Musculoskeletal: No acute rib fracture. Visualized aspects of the clavicles are intact. No sternal fracture. Flowing osteophytes are present across anterior aspect of the thoracic spine most compatible with diffuse idiopathic skeletal hyperostosis. No chalk stick fracture. IMPRESSION: 1. No acute rib fracture. 2. No features of other acute traumatic injury within the chest. Dictated on workstation # [id number] Dict: 01/19/22 1559 Trans: 01/19/22 1606 CVB [id number] Interpreted by: KURT PIERRE MD Electronically signed by: [facility] [place], [place] NAME: JEAN PAUL FLORES JR [facility] REC#: [id number] PT STATUS: REG ER : 1945 PHYSICIAN: KHADAR UMANZOR MD ADMIT DATE: 01/19/22/ER Draft Date of Exam:01/19/22 SHOULDER, RIGHT, 3 VIEWS INDICATION: Right shoulder pain 3 views of the right shoulder show narrowing of the acromial humeral space with slight upward displacement of the humerus relative to the glenoid. There are osteophytes forming the inferior margin of the humeral head. IMPRESSION: Suspected rotator cuff pathology with sparing of the acromiohumeral space. There are associated degenerative changes of glenohumeral joint and acromioclavicular joint. Dictated on workstation # [id number] Dict: 01/19/22 1556 Trans: 01/19/22 1557 CV [id number] Interpreted by: ANNA CARBAJAL MD Electronically signed by: Departure Impression Primary Impression: Concussion without loss of consciousness Qualified Codes: S06.0X0A - Concussion without loss of consciousness, initial encounter Additional Impression: Rotator cuff injury Qualified Codes: S46.001A - Unspecified injury of muscle(s) and tendon(s) of the rotator cuff of right shoulder, initial encounter Disposition: 01 HOME, SELF-CARE Condition: Stable Departure-Patient Inst. Decision time for Depature: 16:30 Referrals: NO,LOCAL PHYSICIAN (PCP) Primary Care Physician GENO ESCAMILLA MD Patient Instructions: Rotator Cuff Injury (DC), Concussion, Adult ED Add. Discharge Instructions: CT imaging of your head, face, neck, and chest show that nothing is broken or bleeding. You do have a rotator cuff injury in your right arm. I would follow- up with Dr. Escamilla regarding this. You can take ibuprofen and/or Tylenol as needed for pain. If you have pain on top of this I would take the hydrocodone that was prescribed to you. This also has Tylenol in it so be careful not to take more than 4000 mg of combined Tylenol in a day. Scripts Hydrocodone Bit/Acetaminophen (HYDROcodone/APAP 5 MG/325 MG TAB) 1 Tab Tab 1 TAB PO Q6H PRN for PAIN-SEVERE (8-10) for 3 Days, #12 TAB 0 Refills Prov: KHADAR UMANZOR MD 01/19/22 Work/School Note: Work Release Form Date Seen in the Emergency Department: Jan 19, 2022 Return to Work: Jan 20, 2022 Restrictions: No Restrictions KHADAR UMANZOR MD Jan 19, 2022 15:28
[2022-01-19] MEDS ORDERED: FLUORESCEIN (FLUOR-I-STRIPS) 1 MG STRP OP ONE (15:30)
[2022-01-19] MEDS ORDERED: TETRACAINE 0.5% OPHTH SOLN 4 ML BTL (SINGLE DOSE ONLY) OP ONE (15:30)
[2022-01-19] MEDS ORDERED: TETANUS,DIPTH,PERTUSS P/F (BOOSTRIX) 0.5 ML VIAL IM ONE (15:30)
--- NOTE | 2022-01-19 15:58 | Diagnostic Imaging Report ---
INDICATION: Right shoulder pain 3 views of the right shoulder show narrowing of the acromial humeral space with slight upward displacement of the humerus relative to the glenoid. There are osteophytes forming the inferior margin of the humeral head. IMPRESSION: Suspected rotator cuff pathology with sparing of the acromiohumeral space. There are associated degenerative changes of glenohumeral joint and acromioclavicular joint. Dictated by: Dictated on workstation # [id number]
--- NOTE | 2022-01-19 16:07 | Diagnostic Imaging Report ---
CT CHEST WO TECHNIQUE: Multiple contiguous axial images were obtained through the chest without the use of intravenous contrast. All CT scans use one or more of the following dose optimizing techniques: automated exposure control, MA and/or KvP adjustment based on a patient size and exam type, or iterative reconstruction. INDICATION: Right-sided chest pain. Trauma COMPARISON: None available FINDINGS: Lungs and airway: No acute traumatic injury in the trachea. Small peritracheal air cyst in the upper mediastinum. No consolidations to suggest laceration or contusion. There are no suspicious pulmonary nodules. Calcified granuloma in the left lower lobe. Pleura: There is no pleural effusion or pneumothorax. Heart and mediastinum: Thyroid is normal. No supraclavicular or axillary lymphadenopathy. No mediastinal or hilar lymphadenopathy. Heart is normal in size without pericardial effusion. Moderate coronary artery calcifications are present. Normal caliber thoracic aorta. No features of mediastinal hemorrhage by noncontrast imaging. Upper abdomen: A 1 cm exophytic nodule off the upper pole right kidney is stable since 2015 and can be considered benign. Musculoskeletal: No acute rib fracture. Visualized aspects of the clavicles are intact. No sternal fracture. Flowing osteophytes are present across anterior aspect of the thoracic spine most compatible with diffuse idiopathic skeletal hyperostosis. No chalk stick fracture. IMPRESSION: 1. No acute rib fracture. 2. No features of other acute traumatic injury within the chest. Dictated by: Dictated on workstation # [id number]
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
[2022-01-19] MEDS ORDERED: ACHD5005 PO (16:36)
[2022-01-19 16:40] VITALS: BP 130/94
== END 2022-01-19 16:41 | disposition home or self-care (01) ==
LOC: EDUNIT# 15:05 → ER 15:06
DX: S06.0X0A Concussion without loss of consciousness, initial encounter (principal); S40.011A Contusion of right shoulder, initial encounter; S20.211A Contusion of right front wall of thorax, initial encounter; Z23 Encounter for immunization; W22.8XXA Striking against or struck by other objects, initial encounter; Y92.59 Other trade areas as the place of occurrence of the external cause; Y99.0 Civilian activity done for income or pay
CPT/HCPCS: 70450; 70486; 71250; 72125; 73030; 90715